=== PATIENT | male | born 1970 | race American Indian/Alaskan Native ===

== ENCOUNTER 2016-04-04 14:48 | Emergency (ER) | payer MEDICARE ==
[2016-04-04 20:24] VITALS: BP 163/95
--- NOTE | 2016-04-04 20:33 | Emergency Department Report ---
HPI - General Chief Complaint: High BP Time Seen by Provider: 04/04/16 20:07 - HPI HPI: 46 y/o male complain of hypertension .pt state that he went to [facility] to have blood pressure check and was told that bp was high .pt state that he currently had not taken any medication and was wondering what blood pressure.pt denies any pain or discomfort at present .pt denies any headache .denies any chest pain .pt state he has not taken any medication today ED Past Medical Hx - Past Medical History Previous Medical History?: Yes Hx Hypertension: Yes Hx Heart Attack/AMI: Yes Hx Congestive Heart Failure: Yes Hx Diabetes: Yes Hx Asthma: No Hx COPD: No Additional medical history: sleep apnea. MORBID OBESITY. CAD - Surgical History Past Surgical History?: Yes Additional Surgical History: adenoids removed - Social History Smoking Status: Never Smoker Substance Use Type: Prescribed - Medications Home Medications: Home Medications Medication Instructions Recorded Confirmed Last Taken Type Furosemide [Lasix] 20 mg PO QAM 06/16/13 04/05/15 06/16/13 History Lovastatin [Mevacor] 20 mg PO DAILY 06/16/13 04/05/15 06/16/13 History Ondansetron [Zofran Odt] 4 mg PO Q4-6H PRN #20 tab.rapdis 08/23/13 04/05/15 Unknown Rx Aspirin [Aspirin BABY CHEW TAB] 81 mg PO DAILY #30 tab.chew 04/06/14 04/05/15 Unknown Rx Diltiazem Cd [Cardizem CD] 120 mg PO DAILY #30 capsule 04/06/14 04/05/15 Unknown Rx Furosemide [Lasix] 20 mg PO DAILY #30 tablet 04/06/14 04/05/15 Unknown Rx HYDROcodone/APAP 5-325 [[place] 1 each PO Q6HR PRN #20 tablet 04/06/14 04/05/15 Unknown Rx 5-325 mg TAB] Levofloxacin [Levaquin] 750 mg PO QDAY #7 tablet 04/06/14 04/05/15 Unknown Rx Lisinopril/Hydrochlorothiazide 1 tab PO QAM #30 tablet 04/06/14 04/05/15 Unknown Rx [Zestoretic 20-25 mg] Omeprazole Magnesium [PriLOSEC Otc] 20 mg PO QDAY #20 tablet. 04/06/14 Unknown Rx Simvastatin [Zocor TAB] 20 mg PO QHS #30 tablet 04/06/14 04/05/15 Unknown Rx Warfarin [Coumadin] 7.5 mg PO QAM #30 tablet 04/06/14 04/05/15 Unknown Rx glipiZIDE [glipiZIDE ER] 5 mg PO BID #60 tab.er.24 04/06/14 04/05/15 Unknown Rx hydrALAZINE [Apresoline TAB] 25 mg PO TID #90 tablet 04/06/14 04/05/15 Unknown Rx metFORMIN [Glucophage] 850 mg PO BID #30 tablet 04/06/14 04/05/15 Unknown Rx Furosemide [Lasix TAB] 20 mg PO QDAY 04/05/15 03/19/16 03/05/16 History Metformin HCl [Glucophage] 1,000 mg PO BID 04/05/15 03/19/16 03/05/16 History glipiZIDE [glipiZIDE XL] 10 mg PO DAILY 04/05/15 03/19/16 03/05/16 History Diltiazem Cd [Cardizem CD] 180 mg PO BID #60 capsule 03/08/16 03/19/16 Unknown Rx Propafenone [Rythmol] 150 mg PO Q8H #90 tablet 03/08/16 03/19/16 Unknown Rx Simvastatin [Zocor TAB] 10 mg PO QHS #30 tablet 03/08/16 03/19/16 Unknown Rx Warfarin [Coumadin] 7.5 mg PO QDAY #30 tablet 03/08/16 03/19/16 Unknown Rx ED Review of Systems ROS: Stated complaint: BP HIGH Other details as noted in HPI Constitutional: denies: chills, fever Eyes: denies: eye pain, eye discharge, vision change ENT: denies: ear pain, throat pain Respiratory: denies: cough, shortness of breath, wheezing Cardiovascular: denies: chest pain, palpitations Endocrine: no symptoms reported Gastrointestinal: denies: abdominal pain, nausea, diarrhea Genitourinary: denies: urgency, dysuria Musculoskeletal: denies: back pain, joint swelling, arthralgia Skin: denies: rash, lesions Neurological: denies: headache, weakness, paresthesias Psychiatric: denies: anxiety, depression Hematological/Lymphatic: denies: easy bleeding, easy bruising Physical Exam - Physical Exam Vital Signs: Vital Signs 04/04/16 04/04/16 15:55 20:23 Temperature 98.1 F 97.6 F Pulse Rate 103 H 94 H Respiratory 22 18 Rate Blood Pressure 144/93 Blood Pressure 163/95 [Right] O2 Sat by Pulse 94 94 Oximetry Physical Exam: GENERAL: The patient is well-developed and well-nourished.pt is obese . Patient is in NAD. HENT: Normocephalic. Atraumatic. Patient has moist mucous membranes. Throat: No erythema, swelling or exudates. EYES: Extraocular motions are intact, PERRL NECK: Supple. No meningitic signs are noted. There is no adenopathy noted. CHEST/LUNGS: Clear to auscultation bilaterally. No wheezing, rales or rhonchi noted. There is no respiratory distress noted. HEART/CARDIOVASCULAR: Regular rate and rhythm. Normal S1 S2. No murmurs, rubs , clicks, or gallops. ABDOMEN: Abdomen is soft, nontender.. Bowel sounds normoactive. There is no abdominal distention. Negative rebound tenderness. : Deferred. SKIN: There is no rash. There is no edema. There is no diaphoresis. NEURO: The patient is A&Ox3. The patient has no focal neurologic deficits. MUSCULOSKELETAL: There is no tenderness or deformity. There is no limitation range of motion. PSYCH: Pt has appropriate mood and affect. ED Course Vital Signs 04/04/16 04/04/16 15:55 20:23 Temperature 98.1 F 97.6 F Pulse Rate 103 H 94 H Respiratory 22 18 Rate Blood Pressure 144/93 Blood Pressure 163/95 [Right] O2 Sat by Pulse 94 94 Oximetry ED Medical Decision Making - Medical Decision Making Hypertension pt state he current on medication but has not taken none today Critical care attestation.: If time is entered above; I have spent that time in minutes in the direct care of this critically ill patient, excluding procedure time. ED Disposition Clinical Impression: HTN (hypertension) Qualifiers: Hypertension type: essential hypertension Qualified Code(s): I10 - Essential ( primary) hypertension Disposition: DISCHARGED TO HOME OR SELFCARE Is pt being admited?: No Does the pt Need Aspirin: No Condition: Stable Instructions: Hypertension (ED) Time of Disposition: 20:41
== END 2016-04-04 20:42 | disposition home or self-care (01) ==
LOC: ED 14:48
DX: I10 Essential (primary) hypertension (principal); I25.2 Old myocardial infarction; E11.9 Type 2 diabetes mellitus without complications; I50.9 Heart failure, unspecified; E66.01 Morbid (severe) obesity due to excess calories; I25.10 Atherosclerotic heart disease of native coronary artery without angina pectoris; Z79.82 Long term (current) use of aspirin; Z79.01 Long term (current) use of anticoagulants
CPT/HCPCS: 99282

== ENCOUNTER 2016-08-10 06:22 | Day surgery (SDC) | payer MEDICARE ==
[2016-08-10] MEDS ORDERED: ECOTRIN PO ONE (07:06)
[2016-08-10] MEDS ORDERED: NACL 0.9% 500 ML 500 ML IV SCH (08:00)
[2016-08-10] MEDS ORDERED: VERSED ONE (09:30)
[2016-08-10] MEDS ORDERED: NITROGLYCERIN SYRINGE 3 ML ONE (09:30)
[2016-08-10] MEDS ORDERED: HEPARIN 10,000 UNITS/10 ML ONE (09:30)
[2016-08-10] MEDS ORDERED: HEPARIN/NS 5000 UNIT/500ML(CATH LAB) 1,000 ML IR ONE (09:30)
[2016-08-10] MEDS ORDERED: XYLOCAINE 2% INFILTRATI ONE (09:30)
[2016-08-10] MEDS ORDERED: SUBLIMAZE ONE (09:30)
[2016-08-10] MEDS ORDERED: CALAN ONE (09:30)
--- NOTE | 2016-08-10 10:54 | Short Stay Summary ---
Short Stay Documentation Date of service: 08/10/16 - History H&P: obtained from office - Allergies and Medications Current Medications: Allergies No Known Allergies Allergy (Verified 04/05/15 14:07) Home Medications Medication Instructions Recorded Confirmed Last Taken Type Furosemide [Lasix TAB] 20 mg PO QDAY 04/05/15 08/10/16 08/09/16 History Metformin HCl [Glucophage] 1,000 mg PO BID 04/05/15 08/10/16 08/09/16 History glipiZIDE [glipiZIDE XL] 10 mg PO DAILY 04/05/15 08/10/16 08/09/16 History Diltiazem Cd [Cardizem CD] 180 mg PO BID #60 capsule 03/08/16 08/10/16 08/10/16 Rx Lisinopril [Lisinopril] 20 mg PO DAILY 08/10/16 08/10/16 08/10/16 History Simvastatin [Zocor TAB] 20 mg PO QHS 08/10/16 08/10/16 08/09/16 History Sotalol HCl [Sotalol] 120 mg PO BID 08/10/16 08/10/16 08/10/16 History Warfarin [Coumadin] 10 mg PO QDAY 08/10/16 08/10/16 08/06/16 History hydrALAZINE [Apresoline TAB] 100 mg PO BID 08/10/16 08/10/16 08/09/16 History Active Medications Sodium Chloride (Nacl 0.9% 500 Ml) 500 mls @ 50 mls/hr IV DIRECT RODNEY Stop: 08/10/16 17:59 Last Admin: 08/10/16 07:39 Dose: 50 mls/hr - Disposition Condition at discharge: Good Disposition: DISCHARGED TO HOME OR SELFCARE - Discharge Diagnoses (1) Atrial fibrillation Status: Chronic Qualifiers: Atrial fibrillation type: paroxysmal Qualified Code(s): I48.0 - Paroxysmal atrial fibrillation (2) Hyperglycemia Status: Acute (3) HTN (hypertension) Status: Chronic (4) Hyperlipidemia Status: Chronic Qualifiers: Hyperlipidemia type: H (5) Morbid obesity Status: Chronic Qualifiers: Obesity type: due to excess calories Qualified Code(s): E66.01 - Morbid ( severe) obesity due to excess calories Short Stay Discharge Plan Activity: advance as tolerated Wound: keep clean and dry Follow up with: ASAEL DOMINGUEZ MD [Staff Physician] - 7 Days
[2016-08-10 11:33] VITALS: BP 124/71
--- NOTE | 2016-08-10 13:32 | Cardiac Catherization Report ---
CLINICAL INFORMATION: This is a 46-year-old gentleman with morbid obesity, has hypertension, paroxysmal atrial fibrillation, who has been having recurrent palpitations, shortness of breath. He is going for bariatric surgery with indeterminate cardiac PET study done last year. In view of symptomatologies, the patient is here for left heart cath. Left heart cath performed via the right radial artery, sterile technique, local anesthesia, 6-Jamaican radial sheath inserted. Left system engaged with a JL3.5 catheter. FINDINGS: Left main is large and patent, bifurcates to large LAD that is patent with moderate tortuosity with mild luminal irregularities. Diagonal 1 is a medium caliber vessel is patent with mild luminal irregularities. Circumflex and AV groove is a medium caliber vessel patent, goes into [id number] caliber OM1 and OM2 that are patent. RCA engaged with JR4 catheter is a large dominant vessel, patent with moderate tortuosity. PDA and PLV are large caliber vessels that are patent and long covers the whole lateral wall. LV gram done in ROMANIAN and IBANEZ view shows EF 55 to 60%. LVEDP at 30 to 35 mmHg, LV is 141. Aortic is 134/86. No significant gradient across the aortic valve on pullback. The 5-Jamaican catheters were all taken over a guidewire, 6-Jamaican radial sheath was discontinued. Radial dressing applied. No hematoma. No bleeding. SUMMARY: Normal coronaries, mild luminal irregularities in the LAD and diagonal, moderate tortuosity of vessels. RCA large and patent dominant. Normal LV function. Normal left main. Mildly elevated left end-diastolic pressure. Continue risk factor modification. Reviewed the films with the patient in detail. JOB# [id number] ANEESH/NTS
== END 2016-08-10 12:30 | disposition home or self-care (01) ==
LOC: OPU 06:22
PROVIDERS: ATTEND Internal Medicine
DX: I48.0 Paroxysmal atrial fibrillation (principal); I11.0 Hypertensive heart disease with heart failure; I50.30 Unspecified diastolic (congestive) heart failure; E78.2 Mixed hyperlipidemia; E66.01 Morbid (severe) obesity due to excess calories; Z68.43 Body mass index [BMI] 50.0-59.9, adult; Z79.899 Other long term (current) drug therapy; Z79.84 Long term (current) use of oral hypoglycemic drugs; Z82.49 Family history of ischemic heart disease and other diseases of the circulatory system; Z83.3 Family history of diabetes mellitus
CPT/HCPCS: 82962; 93005; 93010; 93458; C1894; J1644; J2250; J3010; J7040; Q9967

== ENCOUNTER 2017-06-18 20:30 | Emergency (ER) | payer MEDICAID, MEDICARE ==
[2017-06-18 20:57] LABS: Basophils # (Auto) 0.1 K/mm3 (0.0-0.1); Basophils % (Auto) 0.8 % (0.0-1.8); Eosinophils # (Auto) 0.1 K/mm3 (0.0-0.4); Eosinophils % (Auto) 0.9 % (0.0-4.3); Hematocrit 47.2 % (35.5-45.6); Hemoglobin 14.8 gm/dl (11.8-15.2); Lymphocytes # (Auto) 1.6 K/mm3 (1.2-5.4); Lymphocytes % (Auto) 16.6 % (13.4-35.0); Mean Corpuscular HGB Conc 31 % (32-34); Mean Corpuscular Volume 81 fl (84-94); Monocytes # (Auto) 0.6 K/mm3 (0.0-0.8); Monocytes % (Auto) 6.6 % (0.0-7.3); Platelet Count 209 K/mm3 (140-440); Red Blood Count 5.83 M/mm3 (3.65-5.03); Red Cell Distribution Width 16.9 % (13.2-15.2)
[2017-06-18 20:58] LABS: Mean Corpuscular Hemoglobin 25 pg (28-32)
[2017-06-18 21:08] LABS: INR 2.47 (0.87-1.13)
[2017-06-18 21:20] LABS: BUN/Creatinine Ratio 13; Blood Urea Nitrogen 13 mg/dL (9-20); Calcium 8.7 mg/dL (8.4-10.2); Hemolysis Index 45
--- NOTE | 2017-06-18 22:02 | Emergency Department Report ---
ED Shortness of Breath HPI - General Chief Complaint: Dyspnea/Respdistress Stated Complaint: SOB Time Seen by Provider: 06/18/17 21:17 Source: patient Mode of arrival: Ambulatory Limitations: No Limitations - History of Present Illness Initial Comments: 47-year-old male with history of A. fib history of CHF and morbid obesity with sleep apnea states he had a spell of shortness of breath earlier today he just wanted to get checked he says he better now chest pain no fever no cough no headache no stiff neck states he's been compliant with meds -: Gradual, unknown Severity: mild Associated Symptoms: denies other symptoms - Related Data Home Medications Medication Instructions Recorded Confirmed Last Taken Furosemide [Lasix TAB] 40 mg PO QDAY 04/05/15 06/18/17 08/09/16 Metformin HCl [Glucophage] 1,000 mg PO BID 04/05/15 06/18/17 08/09/16 glipiZIDE [glipiZIDE XL] 10 mg PO BID 04/05/15 06/18/17 08/09/16 Lisinopril 20 mg PO DAILY 08/10/16 06/18/17 08/10/16 Sotalol HCl [Sotalol] 120 mg PO TID 08/10/16 06/18/17 08/10/16 Warfarin [Coumadin] 10 mg PO QDAY 08/10/16 06/18/17 08/06/16 hydrALAZINE [Apresoline TAB] 100 mg PO BID 08/10/16 06/18/17 08/09/16 AtorvaSTATin [Lipitor] 20 mg PO QHS 06/18/17 06/18/17 Unknown Diltiazem Cd [Cardizem CD] 180 mg PO QDAY 06/18/17 06/18/17 Unknown Allergies Allergy/AdvReac Type Severity Reaction Status Date / Time No Known Allergies Allergy Verified 06/18/17 20:42 ED Review of Systems ROS: Stated complaint: SOB Other details as noted in HPI Comment: All other systems reviewed and negative Constitutional: denies: diaphoresis, fever, malaise, weakness ENT: denies: ear pain, throat pain Respiratory: denies: cough, orthopnea, shortness of breath, SOB with exertion, SOB at rest, stridor, wheezing Cardiovascular: orthopnea, edema. denies: chest pain, palpitations, dyspnea on exertion, syncope, paroxysmal nocturnal dyspnea Gastrointestinal: denies: abdominal pain, nausea, vomiting, diarrhea, constipation, hematemesis, melena, hematochezia Musculoskeletal: denies: joint swelling, arthralgia, myalgia Neurological: denies: headache, weakness, numbness, paresthesias, confusion, abnormal gait, vertigo ED Past Medical Hx - Past Medical History Hx Hypertension: Yes Hx Heart Attack/AMI: Yes Hx Congestive Heart Failure: Yes Hx Diabetes: Yes Hx Asthma: No Hx COPD: No Additional medical history: sleep apnea. MORBID OBESITY. CAD - Surgical History Additional Surgical History: adenoids removed - Social History Smoking Status: Never Smoker Substance Use Type: None - Medications Home Medications: Home Medications Medication Instructions Recorded Confirmed Last Taken Type Furosemide [Lasix TAB] 40 mg PO QDAY 04/05/15 06/18/17 08/09/16 History Metformin HCl [Glucophage] 1,000 mg PO BID 04/05/15 06/18/17 08/09/16 History glipiZIDE [glipiZIDE XL] 10 mg PO BID 04/05/15 06/18/17 08/09/16 History Lisinopril 20 mg PO DAILY 08/10/16 06/18/17 08/10/16 History Sotalol HCl [Sotalol] 120 mg PO TID 08/10/16 06/18/17 08/10/16 History Warfarin [Coumadin] 10 mg PO QDAY 08/10/16 06/18/17 08/06/16 History hydrALAZINE [Apresoline TAB] 100 mg PO BID 08/10/16 06/18/17 08/09/16 History AtorvaSTATin [Lipitor] 20 mg PO QHS 06/18/17 06/18/17 Unknown History Diltiazem Cd [Cardizem CD] 180 mg PO QDAY 06/18/17 06/18/17 Unknown History ED Physical Exam - General Limitations: No Limitations General appearance: alert, in no apparent distress - Head Head exam: Present: atraumatic, normocephalic - Eye Eye exam: Present: normal appearance, PERRL, EOMI - ENT ENT exam: Present: normal exam, normal orophraynx - Neck Neck exam: Present: normal inspection. Absent: tenderness, meningismus - Respiratory Respiratory exam: Present: normal lung sounds bilaterally. Absent: respiratory distress, wheezes, rales, rhonchi, stridor, chest wall tenderness - Cardiovascular Cardiovascular Exam: Present: regular rate, normal rhythm - GI/Abdominal GI/Abdominal exam: Present: soft. Absent: tenderness, guarding, rebound, mass, bruit, pulsatile mass - Extremities Exam Extremities exam: Present: normal capillary refill, other (no Homans). Absent: joint swelling, calf tenderness - Neurological Exam Neurological exam: Present: alert, oriented X3, CN II-XII intact. Absent: motor sensory deficit ED Course Vital Signs 06/18/17 06/18/17 06/18/17 20:42 21:23 21:30 Temperature 98.2 F Pulse Rate 109 H 92 H 87 Respiratory 18 16 18 Rate Blood Pressure 193/107 129/63 O2 Sat by Pulse 95 90 89 Oximetry 06/18/17 06/18/17 06/18/17 21:45 22:00 22:16 Temperature Pulse Rate 91 H 93 H 95 H Respiratory 21 20 19 Rate Blood Pressure 112/75 125/76 124/79 O2 Sat by Pulse 91 91 92 Oximetry 06/18/17 06/18/17 06/18/17 22:30 22:46 23:00 Temperature Pulse Rate 94 H 88 86 Respiratory 19 20 18 Rate Blood Pressure 125/87 135/86 134/73 O2 Sat by Pulse 95 92 94 Oximetry 06/18/17 06/18/17 06/18/17 23:16 23:30 23:46 Temperature Pulse Rate 98 H 93 H 82 Respiratory 19 17 17 Rate Blood Pressure 133/70 114/71 141/85 O2 Sat by Pulse 95 94 Oximetry ED Medical Decision Making - Lab Data Result diagrams: 06/18/17 20:48 06/18/17 20:48 - EKG Data -: EKG Interpreted by Vt EKG shows normal: sinus rhythm - EKG Data When compared to previous EKG there are: no significant change Interpretation: no acute changes - Radiology Data Radiology results: image reviewed - Medical Decision Making EKG unchanged, troponin negative, BNP is roughly baseline. Chest x-ray shows no pulmonary infiltrates. Symptoms are not suggestive of PE or DVT at this time. No evidence of acute emergent cardiopulmonary process for further testing or admission is observed at this time. Patient's reference to for outpatient follow-up he says he is feeling at his baseline. Earlier in the day he was worried that he was getting more short of breath. He will continue his current medicine and return if worse Critical care attestation.: If time is entered above; I have spent that time in minutes in the direct care of this critically ill patient, excluding procedure time. ED Disposition Clinical Impression: CHF (congestive heart failure) Disposition: DC-01 TO HOME OR SELFCARE Is pt being admited?: No Condition: Stable Additional Instructions: See her doctor or return if worse or call 911 Referrals: ABDELRAHMAN YUN MD [Primary Care Provider] - 3-5 Days Time of Disposition: 00:13
--- NOTE | 2017-06-18 22:21 | XRay Report ---
FINAL REPORT EXAM: XR CHEST ROUTINE 2V HISTORY: SOB TECHNIQUE: AP portable view of the chest PRIORS: None. FINDINGS: Lines, tubes, and devices: N/A Lungs and pleura: Trachea is normal in position. Perihilar vascular congestion is noted bilaterally. Cardiomediastinal silhouette: cardiac size is enlarged. Other: Bony structures demonstrate mild kyphosis at the thoracolumbar junction. Osteophytic spurring is present anteriorly throughout the thoracic spine IMPRESSION: Perihilar vascular congestion suggesting mild CHF or volume overload. Cardiomegaly
[2017-06-18 23:59] VITALS: BP 141/85
[2017-06-19] MEDS ORDERED: LASIX IV ONE (00:38)
[2017-06-19] MEDS ORDERED: LASIX PO ONE (00:42)
== END 2017-06-19 00:50 | disposition home or self-care (01) ==
LOC: ED 20:30
DX: I11.0 Hypertensive heart disease with heart failure (principal); I50.9 Heart failure, unspecified; I25.2 Old myocardial infarction; I25.10 Atherosclerotic heart disease of native coronary artery without angina pectoris; E11.9 Type 2 diabetes mellitus without complications; E66.01 Morbid (severe) obesity due to excess calories; Z68.44 Body mass index [BMI] 60.0-69.9, adult; Z90.89 Acquired absence of other organs
CPT/HCPCS: 36415; 71046; 80048; 83880; 84484; 85025; 85610; 85730; 93005; 93010

== ENCOUNTER 2021-09-21 14:28 | Inpatient (IN) | payer MEDICARE ==
[2021-09-21 15:30] LABS: Mean Corpuscular HGB Conc 31 % (32-34); Mean Corpuscular Volume 78 fl (84-94); Platelet Count 262 K/mm3 (140-440); Red Blood Count 5.32 M/mm3 (3.65-5.03); Red Cell Distribution Width 17.7 % (13.2-15.2)
[2021-09-21 15:52] LABS: Alanine Aminotransferase 9 units/L (7-56); Albumin 4.5 g/dL (3.9-5); BUN/Creatinine Ratio 24; Blood Urea Nitrogen 26 mg/dL (9-20); Calcium 9.8 mg/dL (8.4-10.2); Hemolysis Index 0
[2021-09-21 15:54] LABS: Hematocrit 41.4 % (35.5-45.6); Hemoglobin 12.8 gm/dl (11.8-15.2)
[2021-09-21 19:09] LABS: Anisocytosis Few; Basophils % (Manual) 0 % (0.0-1.8); Eosinophils % (Manual) 0 % (0.0-4.3); Hypochromasia 1+; Platelet Estimate Consistent w Auto; Total Cells Counted 100
[2021-09-21] MEDS ORDERED: ONDANSETRON 4 MG ODT TAB PO ONE (20:53)
[2021-09-22] MEDS ORDERED: dilTIAZem 25 MG/5 ML INJ IV ONE ×2 (03:38→06:23)
[2021-09-22] MEDS ORDERED: ONDANSETRON 4 MG/2 ML INJ IV ONE (03:38)
[2021-09-22] MEDS ORDERED: SODIUM CHLORIDE 0.9% 1000 ML 1,000 ML IV ONE ×2 (03:39→05:24)
--- NOTE | 2021-09-22 03:44 | Emergency Department Report ---
ED N/V/D HPI - General Chief complaint: Nausea/Vomiting/Diarrhea Stated complaint: WEAKNESS Time Seen by Provider: 09/22/21 03:05 Source: patient, EMS Mode of arrival: Stretcher Limitations: No Limitations - History of Present Illness Initial comments: 51-year-old morbidly obese male with history of atrial fibrillation who presents with nausea and vomiting associated with epigastric discomfort that started yesterday morning progressively getting worse. Patient denies any fever or chills. Patient could not get comfortable in the bed. No other modifying or associated factors reported. - Related Data Home Medications Medication Instructions Recorded Confirmed Last Taken Furosemide [Lasix TAB] 40 mg PO QDAY 04/05/15 06/18/17 08/09/16 Metformin HCl [Glucophage] 1,000 mg PO BID 04/05/15 06/18/17 08/09/16 glipiZIDE [glipiZIDE XL] 10 mg PO BID 04/05/15 06/18/17 08/09/16 Lisinopril 20 mg PO DAILY 08/10/16 06/18/17 08/10/16 Sotalol HCl [Sotalol] 120 mg PO TID 08/10/16 06/18/17 08/10/16 Warfarin [Coumadin] 10 mg PO QDAY 08/10/16 06/18/17 08/06/16 hydrALAZINE [Apresoline TAB] 100 mg PO BID 08/10/16 06/18/17 08/09/16 AtorvaSTATin [Lipitor] 20 mg PO QHS 06/18/17 06/18/17 Unknown dilTIAZem CD [Cardizem CD] 180 mg PO QDAY 06/18/17 06/18/17 Unknown Previous Rx's Medication Instructions Recorded Last Taken Type Omeprazole Magnesium [PriLOSEC Otc] 20 mg PO BID 30 Days #60 tab NS 09/22/21 Unknown Rx Ondansetron [Zofran ODT TAB] 8 mg PO Q8HR 5 Days #15 tab.rapdis 09/22/21 Unknown Rx NS Allergies Allergy/AdvReac Type Severity Reaction Status Date / Time No Known Allergies Allergy Verified 06/18/17 20:42 ED Review of Systems ROS: Stated complaint: WEAKNESS Other details as noted in HPI Comment: All other systems reviewed and negative Gastrointestinal: abdominal pain, nausea, vomiting ED Past Medical Hx - Past Medical History Hx Hypertension: Yes Hx Heart Attack/AMI: Yes Hx Congestive Heart Failure: Yes Hx Diabetes: Yes Hx Asthma: No Hx COPD: No Additional medical history: sleep apnea. MORBID OBESITY. CAD - Surgical History Additional Surgical History: adenoids removed - Social History Smoking Status: Never Smoker Substance Use Type: None - Medications Home Medications: Home Medications Medication Instructions Recorded Confirmed Last Taken Type Furosemide [Lasix TAB] 40 mg PO QDAY 04/05/15 06/18/17 08/09/16 History Metformin HCl [Glucophage] 1,000 mg PO BID 04/05/15 06/18/17 08/09/16 History glipiZIDE [glipiZIDE XL] 10 mg PO BID 04/05/15 06/18/17 08/09/16 History Lisinopril 20 mg PO DAILY 08/10/16 06/18/17 08/10/16 History Sotalol HCl [Sotalol] 120 mg PO TID 08/10/16 06/18/17 08/10/16 History Warfarin [Coumadin] 10 mg PO QDAY 08/10/16 06/18/17 08/06/16 History hydrALAZINE [Apresoline TAB] 100 mg PO BID 08/10/16 06/18/17 08/09/16 History AtorvaSTATin [Lipitor] 20 mg PO QHS 06/18/17 06/18/17 Unknown History dilTIAZem CD [Cardizem CD] 180 mg PO QDAY 06/18/17 06/18/17 Unknown History Omeprazole Magnesium [PriLOSEC Otc] 20 mg PO BID 30 Days #60 tab NS 09/22/21 Unknown Rx Ondansetron [Zofran ODT TAB] 8 mg PO Q8HR 5 Days #15 tab.rapdis 09/22/21 Unknown Rx NS ED Physical Exam - General Limitations: No Limitations General appearance: alert, in no apparent distress, obese - Head Head exam: Present: normal inspection - Eye Eye exam: Present: normal appearance - ENT ENT exam: Present: normal exam, normal orophraynx, mucous membranes moist - Neck Neck exam: Present: normal inspection, full ROM. Absent: tenderness - Respiratory Respiratory exam: Present: normal lung sounds bilaterally. Absent: respiratory distress, accessory muscle use - Cardiovascular Cardiovascular Exam: Present: regular rate, normal rhythm, normal heart sounds - GI/Abdominal GI/Abdominal exam: Present: soft, tenderness (Epigastric), other (Obese). Absen t: distended - Extremities Exam Extremities exam: Present: normal inspection, normal capillary refill. Absent: pedal edema - Back Exam Back exam: Absent: tenderness - Neurological Exam Neurological exam: Present: alert, oriented X3 - Psychiatric Psychiatric exam: Present: normal affect, normal mood - Skin Skin exam: Present: warm, intact ED Course Vital Signs 09/22/21 09/22/21 09/22/21 01:00 01:15 01:31 Pulse Rate 130 H 133 H Respiratory 14 14 19 Rate Blood Pressure 166/105 157/98 O2 Sat by Pulse 95 94 Oximetry 09/22/21 09/22/21 09/22/21 01:45 02:01 02:45 Pulse Rate 121 H 122 H 135 H Respiratory 17 19 17 Rate Blood Pressure 160/107 160/98 157/116 O2 Sat by Pulse Oximetry ED Medical Decision Making - Lab Data Result diagrams: 09/21/21 14:52 09/21/21 14:52 - EKG Data -: EKG Interpreted by Me - EKG Data 09/22/21 03:45 Noted with atrial fibrillation with RVR at 121 bpm with left axis deviation and this abnormal ECG. - Medical Decision Making Here with abdominal pain--differential could be but not limited to appendicitis, diverticulitis, cholecystitis, cholelithiasis, nephrolithiasis, gastritis, pancreatitis, duodenitis, colitis, irritable bowel syndrome, cystitis, so in order to rule this out we will go ahead and order routine acute abdomen that include CBC, CMP, urinalysis, and CT imaging of the abdomen/pelvic. Given Zofran 8 mg IV x1 and fentanyl + ivf ns 1L bolus x 1-- for symptomatic relief-- Also giving Cardizem 20 mg IV x1 for the atrial fibrillation Labs reviewed to be with in normal limit-- and CT abd/pel with no acute findings -- pt reassured and d/c home on zofran and prilosec with close follow up with hi s PCP-- Critical care attestation.: If time is entered above; I have spent that time in minutes in the direct care of this critically ill patient, excluding procedure time. ED Disposition Clinical Impression: Epigastric pain Nausea and vomiting Qualifiers: Vomiting type: unspecified Qualified Code(s): R11.2 - Nausea with vomiting, unspecified Atrial fibrillation Qualifiers: Atrial fibrillation type: unspecified chronic Qualified Code(s): I48.20 - Chronic atrial fibrillation, unspecified Disposition: 01 HOME / SELF CARE / HOMELESS Is pt being admited?: No Does the pt Need Aspirin: No Condition: Stable Instructions: Nausea and Vomiting, Adult, [id number], Atrial Fibrillation, [id number], Abdominal Pain, Adult Additional Instructions: Take your new nausea medication and antiacid as prescribed to continue to help your symptoms : Follow-up with your primary doctor in the next 2 to 3 days for progress It would not be unreasonable to lose some weight to help your overall health Please do not hesitate to call or return to emergency room if your symptoms worsen Prescriptions: Omeprazole Magnesium [PriLOSEC Otc] 20 mg PO BID 30 Days #60 tab NS Ondansetron [Zofran ODT TAB] 8 mg PO Q8HR 5 Days #15 tab.inge FLORES Time of Disposition: 05:12
[2021-09-22 04:20] LABS: Bilirubin,Urine NEG (Negative); Blood,Urine MOD (Negative); Color,Urine Yellow (Yellow); Urobilinogen,Urine < 2.0 mg/dL (<2.0)
[2021-09-22 04:23] LABS: Protein,Urine >500 mg/dL (Negative)
--- NOTE | 2021-09-22 04:53 | Cat Scan Report ---
CT ABDOMEN AND PELVIS WITH CONTRAST INDICATION / CLINICAL INFORMATION: Abdominal pain with N/V/D. TECHNIQUE: Axial CT images were obtained through the abdomen and pelvis after 100 cc Omnipaque [address] scans at this location are performed using CT dose reduction for ALARA by means of automated exposure control. COMPARISON: None available. FINDINGS: LOWER CHEST: Mild cardiomegaly. No acute findings within the lower chest. LIVER: No focal lesion. No acute findings. GALLBLADDER / BILE DUCTS: Gallbladder stones and/or sludge without inflammatory changes. Biliary margarito ts grossly unremarkable. SPLEEN: No significant abnormality. PANCREAS: No significant abnormality. ADRENALS: No significant abnormality. KIDNEYS/URETERS: No stones or hydronephrosis. No solid renal lesion. STOMACH / DUODENUM / SMALL BOWEL: The stomach, duodenum, and small bowel demonstrate no significant a bnormality. No specific abnormality of the mesentery demonstrated. COLON: No significant abnormality. APPENDIX: The appendix is not clearly identified and may be absent. PERITONEUM: No free air or free fluid are present within the abdomen or pelvis. LYMPH NODES: No significant adenopathy. AORTA / ARTERIES: No significant abnormality. IVC / VEINS: No significant abnormality. URINARY BLADDER: No significant abnormality. REPRODUCTIVE ORGANS: No significant abnormality. ADDITIONAL ABDOMINAL/PELVIC FINDINGS: None. SKELETAL SYSTEM: No significant abnormality. IMPRESSION: 1. No acute findings within the abdomen or pelvis. Signer Name: Hunter Ortega II, MD Signed: 09/22/2021 4:49 AM Workstation Name: [id number]
--- NOTE | 2021-09-22 06:57 | Emergency Department Report ---
Blank Doc - Documentation Documentation: I was signed out this patient by the overnight physician, Dr. Victoria. The janey ent had an extensive work-up including labs, EKG, and CT of the abdomen pelvis with IV contrast secondary to nausea and vomiting. The patient has a history of chronic atrial fibrillation and Dr Victoria had asked for me to evaluate after the patient was given a liter of IV fluid and a dose of labetalol for his tachycardia. About 35 minutes after the labetalol was given the patient still had a heart rate varying between 110-135. I therefore gave a second dose of Cardizem, 20 mg. Patient's heart rate now varies between 9210 bpm. He was able to pass an oral challenge. 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
[2021-09-22] MEDS ORDERED: METOCLOPRAMIDE 10 MG/2 ML INJ IV ONE (07:19)
[2021-09-22] MEDS ORDERED: AMIODARONE 900 MG in DEXTROSE 5% IN WATER 482 ML IV SCH ×2 (08:00)
[2021-09-22] MEDS ORDERED: ACETAMINOPHEN 325 MG TAB PO PRN (09:00)
[2021-09-22] MEDS ORDERED: MORPHINE 4 MG/1 ML INJ IV PRN (09:00)
--- NOTE | 2021-09-22 09:44 | Consultation ---
History of Present Illness Consult date: 09/22/21 Requesting physician: CORA GARCIA History of present illness: Patient is a 51-year-old male with a PMHx of morbid obesity, sleep apnea, paroxsimal atrial fibrillation, Chronic diastolic dysfunction, chronic renal insufficiency, HTN, DM, who presents today with complaint of nausea and vomiting since yesterday morning. Patient reports being in normal state of health until yesterday morning when he woke up with the symptoms. Patient also complains of abdominal pain worsened with vomiting. Patient also reports that he feels that he has a virus and reports that he also has a cough. In the ED patient was found to be in A. fib with RVR rate and's into the 130s and 140. Patient denies any complaints of chest pain, diaphoresis, squeezing or crushing heart pain. Patient is followed by Dr. Mike of our practice. Cardiology is consulted for A. fib with RVR Past History Past Medical History: atrial fib, COPD, diabetes, heart failure, hypertension, hyperlipidemia Social history: denies: smoking, alcohol abuse Family history: CAD, diabetes, hypertension Medications and Allergies Allergies Allergy/AdvReac Type Severity Reaction Status Date / Time No Known Allergies Allergy Verified 06/18/17 20:42 Home Medications Medication Instructions Recorded Confirmed Last Taken Type Furosemide [Lasix TAB] 40 mg PO QDAY 04/05/15 06/18/17 08/09/16 History Metformin HCl [Glucophage] 1,000 mg PO BID 04/05/15 06/18/17 08/09/16 History glipiZIDE [glipiZIDE XL] 10 mg PO BID 04/05/15 06/18/17 08/09/16 History Lisinopril 20 mg PO DAILY 08/10/16 06/18/17 08/10/16 History Sotalol HCl [Sotalol] 120 mg PO TID 08/10/16 06/18/17 08/10/16 History Warfarin [Coumadin] 10 mg PO QDAY 08/10/16 06/18/17 08/06/16 History hydrALAZINE [Apresoline TAB] 100 mg PO BID 08/10/16 06/18/17 08/09/16 History AtorvaSTATin [Lipitor] 20 mg PO QHS 06/18/17 06/18/17 Unknown History dilTIAZem CD [Cardizem CD] 180 mg PO QDAY 06/18/17 06/18/17 Unknown History Omeprazole Magnesium [PriLOSEC Otc] 20 mg PO BID 30 Days #60 tab NS 09/22/21 Un known Rx Ondansetron [Zofran ODT TAB] 8 mg PO Q8HR 5 Days #15 tab.rapdis 09/22/21 Unknown Rx NS Active Meds: Active Medications Acetaminophen (Acetaminophen 325 Mg Tab) 650 mg PO Q4H PRN PRN Reason: Pain MILD(1-3)/Fever >100.5/LOWRY Atorvastatin Calcium (Atorvastatin 20 Mg Tab) 20 mg PO QHS RODNEY Digoxin (Digoxin 0.5 Mg/2 Ml Inj) 0.25 mg IV Q6H RODNEY Stop: 09/23/21 04:01 Diltiazem HCl (Diltiazem 90 Mg Tab) 90 mg PO Q6HR RODNEY Furosemide (Furosemide 40 Mg Tab) 40 mg PO BID RODNEY Hydralazine HCl (Hydralazine 100 Mg Tab) 100 mg PO BID RODNEY Lisinopril (Lisinopril 20 Mg Tab) 40 mg PO DAILY RODNEY Morphine Sulfate (Morphine 4 Mg/1 Ml Inj) 4 mg IV Q4H PRN PRN Reason: Pain , Severe (7-10) Ondansetron HCl (Ondansetron 4 Mg/2 Ml Inj) 4 mg IV Q8H PRN PRN Reason: Nausea And Vomiting Oxycodone/Acetaminophen (Oxycodone /Acetaminophen 5-325mg Tab) 1 tab PO Q6H PRN PRN Reason: Pain, Moderate (4-6) Sodium Chloride (Sodium Chloride 0.9% 10 Ml Flush Syringe) 10 ml IV BID RODNEY Sodium Chloride (Sodium Chloride 0.9% 10 Ml Flush Syringe) 10 ml IV PRN PRN PRN Reason: LINE FLUSH Review of Systems Constitutional: no weight loss, no weight gain Ears, nose, mouth and throat: no sinus pressure, no sinus pain Cardiovascular: shortness of breath, no chest pain Respiratory: cough, shortness of breath Gastrointestinal: abdominal pain, nausea, vomiting Musculoskeletal: no neck stiffness, no neck pain Integumentary: no rash, no pruritis, no redness Neurological: no head injury, no transient paralysis Psychiatric: no anxiety, no memory loss Endocrine: no cold intolerance, no heat intolerance Hematologic/Lymphatic: no easy bruising, no easy bleeding Physical Examination Vital Signs Resp Pulse Ox 14 95 09/22/21 01:00 09/22/21 01:00 General appearance: no acute distress HEENT: Positive: PERRL, Normocephaly Cardiac: Positive: irregularly irregular, Tachycardia Lungs: Positive: Decreased Breath Sounds Neuro: Positive: Grossly Intact Abdomen: Positive: Soft Skin: Negative: Rash, Suspicious Lesions, Ulceration Extremities: Present: upper extr. pulses, edema Results 09/21/21 14:52 09/21/21 14:52 Cardiac Enzymes 09/21/21 Range/Units 14:52 AST 10 (5-40) units/L CBC 09/21/21 Range/Units 14:52 WBC 11.0 (4.5-11.0) K/mm3 RBC 5.32 H (3.65-5.03) M/mm3 Hgb 12.8 (11.8-15.2) gm/dl Hct 41.4 (35.5-45.6) % Plt Count 262 (140-440) K/mm3 Comprehensive Metabolic Panel 09/21/21 Range/Units 14:52 Sodium 139 (137-145) mmol/L Potassium 3.9 (3.6-5.0) mmol/L Chloride 97.4 L (98-107) mmol/L Carbon Dioxide 26 (22-30) mmol/L BUN 26 H (9-20) mg/dL Creatinine 1.1 (0.8-1.3) mg/dL Glucose 168 H (75-100) mg/dL Calcium 9.8 (8.4-10.2) mg/dL AST 10 (5-40) units/L ALT 9 (7-56) units/L Alkaline Phosphatase 55 (35-129) units/L Total Protein 8.7 H (6.3-8.2) g/dL Albumin 4.5 (3.9-5) g/dL - Imaging and Cardiology Echo: report reviewed EKG interpretations - Telemetry EKG Rhythm: Atrial Fibrillation - EKG Supraventricular dysrhythmia: atrial fibrillation Assessment and Plan Patient is a 51-year-old male with a PMHx of morbid obesity, sleep apnea, paroxsimal atrial fibrillation, Chronic diastolic dysfunction, chronic renal insufficiency, HTN, DM, who presents today with complaint of nausea and vomiting since yesterday morning A. fib with RVR Nausea/vomiting ABD pain Chronic diastolic dysfunction Chronic renal insufficiency Hypertension Diabetes Sleep apnea Morbid obesity Echo 05/18/2021- Contrast was utilized. There is normal LV systolic function. The estimated LV ejection fraction is normal at 55-60%. There is moderate concentric LV hypertrophy. Normal left atrial pressure and diastolic function. There is normal right ventricular size, wall dimension, and systolic function. The LA volume is mildly increased. There is no aortic valve stenosis or regurgitation. There is mild aortic valve sclerosis without significant stenosis. There is no mitral regurgitation. There is mild tricuspid regurgitation. The estimated RV systolic pressure is 39.29 mmHg. There is trivial pulmonic regurgitation. The ascending aorta is mildly dilated. Ascending Aortic Diameter: 3.94 cm. No left ventricular thrombus noted with LV contrast images. Cardiac cath 08/10/2016-normal coronaries, mild luminal irregularities in the LAD and diagonal, moderate tortuosity of vessels. RCA is large and patent and dominant. Normal LV function. Normal left main. Outpatient medications: Furosemide 40 mg p.o. twice daily, atorvastatin 20 mg p.o. nightly, hydralazine 100 mg p.o. twice daily, lisinopril 40 mg p.o. daily, sotalol 80 mg p.o. twice daily, warfarin, metolazone 2.5 mg p.o. every 72 hours Plan: EKG shows A. fib with RVR rate 121 with PVCs. No acute hemic changes. Troponin negative x1. Patient denies any complaint of chest pain Resume outpatient Lasix, atorvastatin, hydralazine, lisinopril Initiate diltiazem 90 mg p.o. every 6 hours and digoxin 0.25mg IV every 6 hours x4 doses for rate control Anticoagulation with warfarin pharmacy to dose Patient complaining of cough and stating he feels like he has virus. COVID PCR pending Patient seen in conjunction with Dr. Mike who agrees with this plan of care - Patient Problems (1) Chronic diastolic (congestive) heart failure Current Visit: Yes Status: Acute (2) Atrial fibrillation with RVR Current Visit: Yes Status: Acute (3) Epigastric pain Current Visit: Yes Status: Acute (4) Hypoxia Current Visit: Yes Status: Acute (5) Nausea and vomiting Current Visit: Yes Status: Acute Qualifiers: Vomiting type: unspecified Qualified Code(s): R11.2 - Nausea with vomiting, unspecified (6) Obesity hypoventilation syndrome Current Visit: Yes Status: Acute (7) Diabetes Current Visit: No Status: Chronic (8) HTN (hypertension) Current Visit: No Status: Chronic (9) Hyperlipidemia Current Visit: No Status: Chronic (10) Morbid obesity Current Visit: No Status: Chronic (11) Sleep apnea Current Visit: No Status: Chronic
--- NOTE | 2021-09-22 09:56 | History and Physical Report ---
History of Present Illness Date of examination: 09/22/21 Chief complaint: nausea/vomiting History of present illness: 51-year-old male with history of diastolic heart failure, atrial fibrillation on anticoagulation (warfarin), hypertension and obesity who presented to the emergency department with complaints of vomiting x1 day. Patient denies any other abdominal or GI complaints. He has had similar symptoms in the past whenever he had an viral infection. He reports being fully vaccinated against COVID-19. Currently his vomiting has resolved. Prior to discharge in the ED he was found to be in atrial fibrillation with RVR which did not improve when administered with IV Cardizem. Patient currently denies chest pain and shortness of breath. At baseline he uses 2 L of oxygen only at bedtime. Cardiology was consulted for management of atrial fibrillation, patient was admitted to telemetry floor. Past History Past Medical History: atrial fib, COPD, diabetes, heart failure, hypertension, hyperlipidemia Past Surgical History: No surgical history Social history: denies: smoking, alcohol abuse Family history: CAD, diabetes, hypertension Medications and Allergies Allergies Allergy/AdvReac Type Severity Reaction Status Date / Time No Known Allergies Allergy Verified 06/18/17 20:42 Home Medications Medication Instructions Recorded Confirmed Last Taken Type Furosemide [Lasix TAB] 40 mg PO QDAY 04/05/15 09/22/21 09/21/21 History Metformin HCl [Glucophage] 1,000 mg PO BID 04/05/15 09/22/21 09/21/21 History glipiZIDE [glipiZIDE XL] 10 mg PO BID 04/05/15 09/22/21 09/21/21 History Lisinopril 20 mg PO DAILY 08/10/16 09/22/21 09/21/21 History Sotalol HCl [Sotalol] 120 mg PO BID 08/10/16 09/22/21 09/21/21 History Warfarin [Coumadin] 10 mg PO QDAY 08/10/16 09/22/21 09/21/21 History hydrALAZINE [Apresoline TAB] 100 mg PO BID 08/10/16 09/22/21 09/21/21 History AtorvaSTATin [Lipitor] 20 mg PO QHS 06/18/17 09/22/21 09/21/21 History dilTIAZem CD [Cardizem CD] 180 mg PO QDAY 06/18/17 09/22/21 09/21/21 History Omeprazole Magnesium [PriLOSEC Otc] 20 mg PO BID 30 Days #60 tab NS 09/22/21 Unknown Rx Ondansetron [Zofran ODT TAB] 8 mg PO Q8HR 5 Days #15 tab.rapdis 09/22/21 Unknown Rx NS Active Meds: Active Medications Acetaminophen (Acetaminophen 325 Mg Tab) 650 mg PO Q4H PRN PRN Reason: Pain MILD(1-3)/Fever >100.5/LOWRY Atorvastatin Calcium (Atorvastatin 20 Mg Tab) 20 mg PO QHS RODNEY Digoxin (Digoxin 0.5 Mg/2 Ml Inj) 0.25 mg IV Q6H RODNEY Stop: 09/23/21 04:01 Diltiazem HCl (Diltiazem 90 Mg Tab) 90 mg PO Q6HR RODNEY Furosemide (Furosemide 40 Mg Tab) 40 mg PO BID RODNEY Hydralazine HCl (Hydralazine 100 Mg Tab) 100 mg PO BID RODNEY Lisinopril (Lisinopril 20 Mg Tab) 40 mg PO DAILY [facility] Morphine Sulfate (Morphine 4 Mg/1 Ml Inj) 4 mg IV Q4H PRN PRN Reason: Pain , Severe (7-10) Ondansetron HCl (Ondansetron 4 Mg/2 Ml Inj) 4 mg IV Q8H PRN PRN Reason: Nausea And Vomiting Oxycodone/Acetaminophen (Oxycodone /Acetaminophen 5-325mg Tab) 1 tab PO Q6H PRN PRN Reason: Pain, Moderate (4-6) Sodium Chloride (Sodium Chloride 0.9% 10 Ml Flush Syringe) 10 ml IV BID [facility] Sodium Chloride (Sodium Chloride 0.9% 10 Ml Flush Syringe) 10 ml IV PRN PRN PRN Reason: LINE FLUSH Review of Systems Constitutional: no weight loss, no weight gain, no fever, no chills, no night sweats, no fatigue, no malaise, no poor appetite Ears, nose, mouth and throat: deferred Cardiovascular: no chest pain, no orthopnea, no palpitations, no rapid/irregular heart beat, no edema, no lightheadedness, no shortness of breath Respiratory: cough, sleep apnea, no congestion Gastrointestinal: nausea, vomiting, no abdominal pain, no diarrhea, no change in bowel habits, no loss of appetite, no dyspepsia/bloating Genitourinary Male: no dysuria, no hematuria, no flank pain, no urinary hollis quency, no urinary hesitancy Musculoskeletal: no neck stiffness, no shooting arm pain, no arm numbness/tingling, no leg numbness/tingling, no morning stiffness Integumentary: deferred Neurological: no head injury, no weakness, no numbness, no tingling, no syncope, no headaches Psychiatric: no anxiety, no memory loss, no change in sleep habits, no insomnia Endocrine: no cold intolerance, no heat intolerance, no excessive thirst, no polydipsia, no polyuria, no high blood sugars, no low blood sugars Exam - Physical Exam Narrative exam: GENERAL: Obese male. In no acute distress. HEENT: Nasal cannula in place at 2 L/min CHEST/LUNGS: CTAB on supplemental O2. HEART/CARDIOVASCULAR: Irregularly irregular rhythm. No murmur, rubs or gallops appreciated. ABDOMEN: +BS. NT/ND. SKIN: No rashes noted. NEURO: No focal motor deficit. Follows all commands and is ambulatory. MUSCULOSKELETAL: No joint effusion EXTREMITIES: No clubbing or edema. Chronic venous stasis changes in bilateral lower extremity. PSYCH: Cooperative. - Constitutional Vitals: Temp Pulse Resp BP Pulse Ox 98.1 F 119 H 18 150/97 93 09/22/21 08:52 09/22/21 06:45 09/22/21 06:45 09/22/21 06:45 09/22/21 06:01 HEART Score - HEART Score Troponin: Troponin T < 0.010 ng/mL (0.00-0.029) 09/21/21 17:00 Results - Labs CBC & Chem 7: 09/21/21 14:52 09/23/21 04:19 Labs: Laboratory Last Values WBC 11.0 K/mm3 (4.5-11.0) 09/21/21 14:52 RBC 5.32 M/mm3 (3.65-5.03) H 09/21/21 14:52 Hgb 12.8 gm/dl (11.8-15.2) 09/21/21 14:52 Hct 41.4 % (35.5-45.6) 09/21/21 14:52 MCV 78 fl (84-94) L 09/21/21 14:52 MCH 24 pg (28-32) L 09/21/21 14:52 MCHC 31 % (32-34) L 09/21/21 14:52 RDW 17.7 % (13.2-15.2) H 09/21/21 14:52 Plt Count 262 K/mm3 (140-440) 09/21/21 14:52 Add Manual Diff Complete 09/21/21 14:52 Total Counted 100 09/21/21 14:52 Seg Neutrophils % Scratcher Tender 09/21/21 14:52 Seg Neuts % (Manual) 95.0 % (40.0-70.0) H 09/21/21 14:52 Band Neutrophils % 0 % 09/21/21 14:52 Lymphocytes % (Manual) 3.0 % (13.4-35.0) L 09/21/21 14:52 Reactive Lymphs % (Man) 0 % 09/21/21 14:52 Monocytes % (Manual) 2.0 % (0.0-7.3) 09/21/21 14:52 Eosinophils % (Manual) 0 % (0.0-4.3) 09/21/21 14:52 Basophils % (Manual) 0 % (0.0-1.8) 09/21/21 14:52 Metamyelocytes % 0 % 09/21/21 14:52 Myelocytes % 0 % 09/21/21 14:52 Promyelocytes % 0 % 09/21/21 14:52 Blast Cells % 0 % 09/21/21 14:52 Nucleated RBC % Not Reportable 09/21/21 14:52 Seg Neutrophils # Man 10.5 K/mm3 (1.8-7.7) H 09/21/21 14:52 Band Neutrophils # 0.0 K/mm3 09/21/21 14:52 Lymphocytes # (Manual) 0.3 K/mm3 (1.2-5.4) L 09/21/21 14:52 Abs React Lymphs (Man) 0.0 K/mm3 09/21/21 14:52 Monocytes # (Manual) 0.2 K/mm3 (0.0-0.8) 09/21/21 14:52 Eosinophils # (Manual) 0.0 K/mm3 (0.0-0.4) 09/21/21 14:52 Basophils # (Manual) 0.0 K/mm3 (0.0-0.1) 09/21/21 14:52 Metamyelocytes # 0.0 K/mm3 09/21/21 14:52 Myelocytes # 0.0 K/mm3 09/21/21 14:52 Promyelocytes # 0.0 K/mm3 09/21/21 14:52 Blast Cells # 0.0 K/mm3 09/21/21 14:52 WBC Morphology Not Reportable 09/21/21 14:52 Hypersegmented Neuts Not Reportable 09/21/21 14:52 Hyposegmented Neuts Not Reportable 09/21/21 14:52 Hypogranular Neuts Not Reportable 09/21/21 14:52 Smudge Cells Not Reportable 09/21/21 14:52 Toxic Granulation Not Reportable 09/21/21 14:52 Toxic Vacuolation Not Reportable 09/21/21 14:52 Dohle Bodies Not Reportable 09/21/21 14:52 Pelger-Huet Anomaly Not Reportable 09/21/21 14:52 Jamila Rods Not Reportable 09/21/21 14:52 Platelet Estimate Consistent w auto 09/21/21 14:52 Clumped Platelets Not Reportable 09/21/21 14:52 Plt Clumps, EDTA Not Reportable 09/21/21 14:52 Large Platelets Not Reportable 09/21/21 14:52 Giant Platelets Not Reportable 09/21/21 14:52 Platelet Satelliting Not Reportable 09/21/21 14:52 Plt Morphology Comment Not Reportable 09/21/21 14:52 RBC Morphology Not Reportable 09/21/21 14:52 Dimorphic RBCs Not Reportable 09/21/21 14:52 Polychromasia Not Reportable 09/21/21 14:52 Hypochromasia 1+ 09/21/21 14:52 Poikilocytosis Not Reportable 09/21/21 14:52 Anisocytosis Few 09/21/21 14:52 Microcytosis Not Reportable 09/21/21 14:52 Macrocytosis Not Reportable 09/21/21 14:52 Spherocytes Not Reportable 09/21/21 14:52 Pappenheimer Bodies Not Reportable 09/21/21 14:52 Sickle Cells Not Reportable 09/21/21 14:52 Target Cells Not Reportable 09/21/21 14:52 Tear Drop Cells Not Reportable 09/21/21 14:52 Ovalocytes Not Reportable 09/21/21 14:52 Helmet Cells Not Reportable 09/21/21 14:52 [place] Bodies Not Reportable 09/21/21 14:52 [place] Rings Not Reportable 09/21/21 14:52 [place] Cells Not Reportable 09/21/21 14:52 Bite Cells Not Reportable 09/21/21 14:52 Crenated Cell Not Reportable 09/21/21 14:52 Elliptocytes Not Reportable 09/21/21 14:52 Acanthocytes (Spur) Not Reportable 09/21/21 14:52 Rouleaux Not Reportable 09/21/21 14:52 Hemoglobin C Crystals Not Reportable 09/21/21 14:52 Schistocytes Not Reportable 09/21/21 14:52 Malaria parasites Not Reportable 09/21/21 14:52 [place] Bodies Not Reportable 09/21/21 14:52 Hem Pathologist Commnt No 09/21/21 14:52 Sodium 139 mmol/L (137-145) 09/21/21 14:52 Potassium 3.9 mmol/L (3.6-5.0) 09/21/21 14:52 Chloride 97.4 mmol/L (98-107) L 09/21/21 14:52 Carbon Dioxide 26 mmol/L (22-30) 09/21/21 14:52 Anion Gap 20 mmol/L 09/21/21 14:52 BUN 26 mg/dL (9-20) H 09/21/21 14:52 Creatinine 1.1 mg/dL (0.8-1.3) 09/21/21 14:52 Estimated GFR > 60 ml/min 09/21/21 14:52 BUN/Creatinine Ratio 24 % 09/21/21 14:52 Glucose 168 mg/dL (75-100) H 09/21/21 14:52 Calcium 9.8 mg/dL (8.4-10.2) 09/21/21 14:52 Total Bilirubin 0.40 mg/dL (0.1-1.2) 09/21/21 14:52 AST 10 units/L (5-40) 09/21/21 14:52 ALT 9 units/L (7-56) 09/21/21 14:52 Alkaline Phosphatase 55 units/L (35-129) 09/21/21 14:52 Troponin T < 0.010 ng/mL (0.00-0.029) 09/21/21 17:00 Total Protein 8.7 g/dL (6.3-8.2) H 09/21/21 14:52 Albumin 4.5 g/dL (3.9-5) 09/21/21 14:52 Albumin/Globulin Ratio 1.1 % 09/21/21 14:52 Lipase 28 units/L (13-60) 09/21/21 14:52 Urine Color Yellow (Yellow) 09/22/21 Unknown Urine Turbidity Clear (Clear) 09/22/21 Unknown Urine pH 5.0 (5.0-7.0) 09/22/21 Unknown Ur Specific Happy 1.020 (1.003-1.030) 09/22/21 Unknown Urine Protein >500 mg/dL (Negative) 09/22/21 Unknown Urine Glucose (UA) 50 mg/dL (Negative) 09/22/21 Unknown Urine Ketones Tr mg/dL (Negative) 09/22/21 Unknown Urine Blood Mod (Negative) 09/22/21 Unknown Urine Nitrite Neg (Negative) 09/22/21 Unknown Urine Bilirubin Neg (Negative) 09/22/21 Unknown Urine Urobilinogen < 2.0 mg/dL (<2.0) 09/22/21 Unknown Ur Leukocyte Esterase Neg (Negative) 09/22/21 Unknown Urine WBC (Auto) 2.0 /HPF (0.0-6.0) 09/22/21 Unknown Urine RBC (Auto) 2.0 /HPF (0.0-6.0) 09/22/21 Unknown U Epithel Cells (Auto) 2.0 /HPF (0-13.0) 09/22/21 Unknown Assessment and Plan Assessment and plan: #Acute on chronic atrial fibrillation with rapid ventricular response -Patient with history of eating foods. Anticoagulated on warfarin. -Warfarin restarted, will be dosed by pharmacy -INR ordered; goal 2-3 -patient takes diltiazem, sotalol for rate control -amiodarone drip started in the ER -Cardiology consulted; he follows with Dr. Mike outpatient #Acute on chronic hypoxic respiratory failure -patient uses supplemental O2 (2LPM) PRN, mostly at night -currently on NC @ 2LPM, will wean as tolerated -COVID PCR negative #Nausea/vomiting-resolved #Chronic heart failure with preserved ejection fraction, not in acute exacerbation -EF 55-60% per TTE from May 2021 -will resume lasix at home dose #Hypertension -will continue lisinopril and hydralazine at home doses -goal SBP <160 #Type 2 diabetes, [id number] -patient takes metformin and glipizide at home -will start SSI and accuchecks at home -will continue to monitor #Obstructive sleep apnea -patient uses BiPAP at home -CPAP qhs ordered #Morbid obesity #Obesity hypoventilation syndrome - Counseled patient on the importance of weight loss, incorporating exercise, and dietary changes (lean meats, fresh fruits and vegetables, and water intake). Patient expresses understanding. - Time: +15 min #Advanced care planning -Disease education conducted, care plan discussed, diagnoses discussed, prognosis discussed, and patient acknowledges understanding with care plan -Time: +30 min Advance Directives: No VTE prophylaxis?: Not ordered Contraindication Mechanical VTE Prophylaxis: Contraindicated Reason for no VTE Prophylaxis: Medical contraindication Plan of care discussed with patient/family: Yes
[2021-09-22] MEDS ORDERED: FUROSEMIDE 20 MG TAB PO SCH (10:00)
[2021-09-22] MEDS: DIGOXIN 0.5 MG/2 ML INJ IV SCH ×3 (10:30→21:02)
[2021-09-22] MEDS ORDERED: DEXTROSE 50% IN WATER (25GM) 50 ML SYRINGE IV PRN (10:30)
[2021-09-22] MEDS: LISINOPRIL 20 MG TAB PO SCH (10:31)
[2021-09-22] MEDS: FUROSEMIDE 40 MG TAB PO SCH ×2 (10:33→21:10)
[2021-09-22] MEDS: hydrALAZINE 100 MG TAB PO SCH ×2 (10:33→21:10)
[2021-09-22] MEDS: ONDANSETRON 4 MG/2 ML INJ IV PRN ×2 (12:19→21:07)
[2021-09-22] MEDS: INSULIN REGULAR, HUMAN 100 UNITS/1 ML SUB-Q SCH ×3 (12:32→23:55)
[2021-09-22 14:58] LABS: INR 2.12 (0.87-1.13)
[2021-09-22] MEDS ORDERED: WARFARIN 10 MG TAB PO SCH (17:00)
[2021-09-23] MEDS: DIGOXIN 0.5 MG/2 ML INJ IV SCH (04:05)
[2021-09-23 05:33] LABS: BUN/Creatinine Ratio 17; Blood Urea Nitrogen 15 mg/dL (9-20); Calcium 9.4 mg/dL (8.4-10.2); Hemolysis Index 9; INR 2.45 (0.87-1.13)
[2021-09-23] MEDS: INSULIN REGULAR, HUMAN 100 UNITS/1 ML SUB-Q SCH ×4 (07:41→21:42)
[2021-09-23] MEDS ORDERED: POTASSIUM CHLORIDE ER 20 MEQ TAB PO SCH (08:00)
[2021-09-23] MEDS: hydrALAZINE 100 MG TAB PO SCH ×2 (09:14→21:41)
[2021-09-23] MEDS: LISINOPRIL 20 MG TAB PO SCH (09:14)
[2021-09-23] MEDS: FUROSEMIDE 40 MG TAB PO SCH ×2 (09:15→21:41)
[2021-09-23] MEDS: dilTIAZem CD 120 MG CAP PO SCH (09:46)
[2021-09-23] MEDS: dilTIAZem CD 240 MG CAP PO SCH (09:46)
[2021-09-23] MEDS: METOPROLOL TARTRATE 50 MG TAB PO SCH ×2 (09:47→21:41)
[2021-09-23] MEDS ORDERED: dilTIAZem CD 300 MG CAP PO SCH (10:00)
--- NOTE | 2021-09-23 10:32 | Progress Note ---
Assessment and Plan Patient is a 51-year-old male with a PMHx of morbid obesity, sleep apnea, paroxsimal atrial fibrillation, Chronic diastolic dysfunction, chronic renal insufficiency, HTN, DM, who presents today with complaint of nausea and vomiting since yesterday morning A. fib with RVR Nausea/vomiting ABD pain Chronic diastolic dysfunction Chronic renal insufficiency Hypertension Diabetes Sleep apnea Morbid obesity Echo 05/18/2021- Contrast was utilized. There is normal LV systolic function. The estimated LV ejection fraction is normal at 55-60%. There is moderate concentric LV hypertrophy. Normal left atrial pressure and diastolic function. There is normal right ventricular size, wall dimension, and systolic function. The LA volume is mildly increased. There is no aortic valve stenosis or regurgitation. There is mild aortic valve sclerosis without significant stenosis. There is no mitral regurgitation. There is mild tricuspid regurgitation. The estimated RV systolic pressure is 39.29 mmHg. There is trivial pulmonic regurgitation. The ascending aorta is mildly dilated. Ascending Aortic Diameter: 3.94 cm. No left ventricular thrombus noted with LV contrast images. Cardiac cath 08/10/2016-normal coronaries, mild luminal irregularities in the LAD and diagonal, moderate tortuosity of vessels. RCA is large and patent and dominant. Normal LV function. Normal left main. Outpatient medications: Furosemide 40 mg p.o. twice daily, atorvastatin 20 mg p.o. nightly, hydralazine 100 mg p.o. twice daily, lisinopril 40 mg p.o. daily, sotalol 80 mg p.o. twice daily, warfarin, metolazone 2.5 mg p.o. every 72 hours Plan: EKG shows A. fib with RVR rate 121 with PVCs. No acute hemic changes. Troponin negative x1. Patient denies any complaint of chest pain Telemetry reviewed patient still A. fib 90s to 100s episodes into the 120s Will convert to Cardizem CD 360 mg p.o. daily. We will also initiate digoxin 0.25 mg p.o. daily and metoprolol 50 mg p.o. twice daily for rate control Continue outpatient Lasix, atorvastatin, hydralazine, lisinopril Anticoagulation with warfarin pharmacy to dose COVID PCR negative Discussed plan of care with patient who verbalized understanding and agreement Patient seen in conjunction with Dr. Mike who agrees with this plan of care - Patient Problems (1) Chronic diastolic (congestive) heart failure Current Visit: Yes Status: Acute (2) Atrial fibrillation with RVR Current Visit: Yes Status: Acute (3) Epigastric pain Current Visit: Yes Status: Acute (4) Hypoxia Current Visit: Yes Status: Acute (5) Nausea and vomiting Current Visit: Yes Status: Acute Qualifiers: Vomiting type: unspecified Qualified Code(s): R11.2 - Nausea with vomiting, unspecified (6) Obesity hypoventilation syndrome Current Visit: Yes Status: Acute (7) Diabetes Current Visit: No Status: Chronic (8) HTN (hypertension) Current Visit: No Status: Chronic (9) Hyperlipidemia Current Visit: No Status: Chronic (10) Morbid obesity Current Visit: No Status: Chronic (11) Sleep apnea Current Visit: No Status: Chronic Subjective Date of service: 09/23/21 Principal diagnosis: A. fib with RVR Interval history: Patient sitting in chair in no acute distress. Patient reports he is no longer vomiting but does report belching. A. fib trend 90s to 100s on monitor with episodes into the 120s Objective Vital Signs Temp Pulse Resp BP Pulse Ox 09/23/21 08:28 95 09/23/21 07:44 98 09/23/21 05:58 122 H 09/23/21 04:05 97 H 152/107 09/23/21 03:00 98 09/23/21 00:29 95 H 148/75 09/22/21 23:33 98.2 F 92 H 18 148/75 98 09/22/21 23:10 89 20 99 09/22/21 21:02 80 159/100 09/22/21 20:45 22 159/100 09/22/21 15:56 18 96 09/22/21 15:52 98.6 F 18 188/111 09/22/21 15:37 110 H 09/22/21 12:07 98.1 F 124 H 18 167/98 95 09/22/21 10:41 140 H 19 194/108 96 - Physical Examination HEENT: Positive: PERRL, Normocephaly Cardiac: Positive: irregularly irregular Lungs: Positive: Normal Breath Sounds Neuro: Positive: Grossly Intact Abdomen: Positive: Soft Skin: Negative: Rash, Suspicious Lesions, Ulceration Extremities: Present: upper extr. pulses, edema - Labs and Meds Coagulation 09/22/21 09/23/21 Range/Units 12:41 04:19 PT 26.5 H 29.8 H (12.2-14.9) Sec. INR 2.12 H 2.45 H (0.87-1.13) Comprehensive Metabolic Panel 09/23/21 Range/Units 04:19 Sodium 136 L (137-145) mmol/L Potassium 3.5 L (3.6-5.0) mmol/L Chloride 97.6 L (98-107) mmol/L Carbon Dioxide 28 (22-30) mmol/L BUN 15 (9-20) mg/dL Creatinine 0.9 (0.8-1.3) mg/dL Glucose 150 H (75-100) mg/dL Calcium 9.4 (8.4-10.2) mg/dL - Imaging and Cardiology Echo: report reviewed - Telemetry EKG Rhythm: Atrial Fibrillation - EKG Supraventricular dysrhythmia: atrial fibrillation
--- NOTE | 2021-09-23 12:26 | Progress Note ---
Assessment and Plan Assessment and plan: #Acute on chronic atrial fibrillation with rapid ventricular response -Patient with history of eating foods. Anticoagulated on warfarin. -Warfarin restarted, will be dosed by pharmacy -INR ordered; goal 2-3 -diltiazem 360 qday, digoxin 0.25mg qday and metoprolol 50mg BID started by Cardiology for rate control -Cardiology following, assistance appreciated #Acute on chronic hypoxic respiratory failure -patient uses supplemental O2 (2LPM) PRN, mostly at night -currently on NC @ 2LPM, will wean as tolerated -COVID PCR negative #Nausea/vomiting-resolved #Chronic heart failure with preserved ejection fraction, not in acute exacerbation -EF 55-60% per TTE from May 2021 -continue lasix at home dose #Hypertension -will continue lisinopril and hydralazine at home doses -goal SBP <160 #Type 2 diabetes, [id number] -patient takes metformin and glipizide at home -will start SSI and accuchecks at home -will continue to monitor #Obstructive sleep apnea -patient uses BiPAP at home -CPAP qhs ordered, patient will use home machine #Morbid obesity #Obesity hypoventilation syndrome - Counseled patient on the importance of weight loss, incorporating exercise, and dietary changes (lean meats, fresh fruits and vegetables, and water intake). Patient expresses understanding. - Time: +15 min #Advanced care planning -Disease education conducted, care plan discussed, diagnoses discussed, progno sis discussed, and patient acknowledges understanding with care plan -Time: +30 min History Interval history: No acute events overnight. Patient reports feeling tired. Has noticed no worsening shortness of breath and currently has no chest pain. We discussed current care plan which patient agrees with. Hospitalist Physical - Physical exam Narrative exam: GENERAL: Obese male. Sitting in a chair, in no acute distress. HEENT: Nasal cannula in place at 2 L/min CHEST/LUNGS: CTAB on supplemental O2. HEART/CARDIOVASCULAR: Irregularly irregular rhythm. No murmur, rubs or gallops appreciated. ABDOMEN: +BS. NT/ND. SKIN: No rashes noted. NEURO: No focal motor deficit. Follows all commands and is ambulatory. MUSCULOSKELETAL: No joint effusion EXTREMITIES: No clubbing or edema. Chronic venous stasis changes in bilateral lower extremity. PSYCH: Cooperative. - Constitutional Vitals: Temp Pulse Resp BP Pulse Ox 98.2 F 122 H 18 152/107 95 09/22/21 23:33 09/23/21 05:58 09/22/21 23:33 09/23/21 04:05 09/23/21 08:28 General appearance: Present: no acute distress HEART Score - HEART Score Troponin: Troponin T < 0.010 ng/mL (0.00-0.029) 09/21/21 17:00 Results - Labs CBC & Chem 7: 09/21/21 14:52 09/23/21 04:19 Labs: Laboratory Last Values WBC 11.0 K/mm3 (4.5-11.0) 09/21/21 14:52 RBC 5.32 M/mm3 (3.65-5.03) H 09/21/21 14:52 Hgb 12.8 gm/dl (11.8-15.2) 09/21/21 14:52 Hct 41.4 % (35.5-45.6) 09/21/21 14:52 MCV 78 fl (84-94) L 09/21/21 14:52 MCH 24 pg (28-32) L 09/21/21 14:52 MCHC 31 % (32-34) L 09/21/21 14:52 RDW 17.7 % (13.2-15.2) H 09/21/21 14:52 Plt Count 262 K/mm3 (140-440) 09/21/21 14:52 Add Manual Diff Complete 09/21/21 14:52 Total Counted 100 09/21/21 14:52 Seg Neutrophils % Production Machine Computer Operator 09/21/21 14:52 Seg Neuts % (Manual) 95.0 % (40.0-70.0) H 09/21/21 14:52 Band Neutrophils % 0 % 09/21/21 14:52 Lymphocytes % (Manual) 3.0 % (13.4-35.0) L 09/21/21 14:52 Reactive Lymphs % (Man) 0 % 09/21/21 14:52 Monocytes % (Manual) 2.0 % (0.0-7.3) 09/21/21 14:52 Eosinophils % (Manual) 0 % (0.0-4.3) 09/21/21 14:52 Basophils % (Manual) 0 % (0.0-1.8) 09/21/21 14:52 Metamyelocytes % 0 % 09/21/21 14:52 Myelocytes % 0 % 09/21/21 14:52 Promyelocytes % 0 % 09/21/21 14:52 Blast Cells % 0 % 09/21/21 14:52 Nucleated RBC % Not Reportable 09/21/21 14:52 Seg Neutrophils # Man 10.5 K/mm3 (1.8-7.7) H 09/21/21 14:52 Band Neutrophils # 0.0 K/mm3 09/21/21 14:52 Lymphocytes # (Manual) 0.3 K/mm3 (1.2-5.4) L 09/21/21 14:52 Abs React Lymphs (Man) 0.0 K/mm3 09/21/21 14:52 Monocytes # (Manual) 0.2 K/mm3 (0.0-0.8) 09/21/21 14:52 Eosinophils # (Manual) 0.0 K/mm3 (0.0-0.4) 09/21/21 14:52 Basophils # (Manual) 0.0 K/mm3 (0.0-0.1) 09/21/21 14:52 Metamyelocytes # 0.0 K/mm3 09/21/21 14:52 Myelocytes # 0.0 K/mm3 09/21/21 14:52 Promyelocytes # 0.0 K/mm3 09/21/21 14:52 Blast Cells # 0.0 K/mm3 09/21/21 14:52 WBC Morphology Not Reportable 09/21/21 14:52 Hypersegmented Neuts Not Reportable 09/21/21 14:52 Hyposegmented Neuts Not Reportable 09/21/21 14:52 Hypogranular Neuts Not Reportable 09/21/21 14:52 Smudge Cells Not Reportable 09/21/21 14:52 Toxic Granulation Not Reportable 09/21/21 14:52 Toxic Vacuolation Not Reportable 09/21/21 14:52 Dohle Bodies Not Reportable 09/21/21 14:52 Pelger-Huet Anomaly Not Reportable 09/21/21 14:52 Jamila Rods Not Reportable 09/21/21 14:52 Platelet Estimate Consistent w auto 09/21/21 14:52 Clumped Platelets Not Reportable 09/21/21 14:52 Plt Clumps, EDTA Not Reportable 09/21/21 14:52 Large Platelets Not Reportable 09/21/21 14:52 Giant Platelets Not Reportable 09/21/21 14:52 Platelet Satelliting Not Reportable 09/21/21 14:52 Plt Morphology Comment Not Reportable 09/21/21 14:52 RBC Morphology Not Reportable 09/21/21 14:52 Dimorphic RBCs Not Reportable 09/21/21 14:52 Polychromasia Not Reportable 09/21/21 14:52 Hypochromasia 1+ 09/21/21 14:52 Poikilocytosis Not Reportable 09/21/21 14:52 Anisocytosis Few 09/21/21 14:52 Microcytosis Not Reportable 09/21/21 14:52 Macrocytosis Not Reportable 09/21/21 14:52 Spherocytes Not Reportable 09/21/21 14:52 Pappenheimer Bodies Not Reportable 09/21/21 14:52 Sickle Cells Not Reportable 09/21/21 14:52 Target Cells Not Reportable 09/21/21 14:52 Tear Drop Cells Not Reportable 09/21/21 14:52 Ovalocytes Not Reportable 09/21/21 14:52 Helmet Cells Not Reportable 09/21/21 14:52 [place] Bodies Not Reportable 09/21/21 14:52 [place] Rings Not Reportable 09/21/21 14:52 Betty Cells Not Reportable 09/21/21 14:52 Bite Cells Not Reportable 09/21/21 14:52 Crenated Cell Not Reportable 09/21/21 14:52 Elliptocytes Not Reportable 09/21/21 14:52 Acanthocytes (Spur) Not Reportable 09/21/21 14:52 Rouleaux Not Reportable 09/21/21 14:52 Hemoglobin C Crystals Not Reportable 09/21/21 14:52 Schistocytes Not Reportable 09/21/21 14:52 Malaria parasites Not Reportable 09/21/21 14:52 Tyson Bodies Not Reportable 09/21/21 14:52 Hem Pathologist Commnt No 09/21/21 14:52 PT 29.8 Sec. (12.2-14.9) H 09/23/21 04:19 INR 2.45 (0.87-1.13) H 09/23/21 04:19 Sodium 136 mmol/L (137-145) L 09/23/21 04:19 Potassium 3.5 mmol/L (3.6-5.0) L 09/23/21 04:19 Chloride 97.6 mmol/L (98-107) L 09/23/21 04:19 Carbon Dioxide 28 mmol/L (22-30) 09/23/21 04:19 Anion Gap 14 mmol/L 09/23/21 04:19 BUN 15 mg/dL (9-20) 09/23/21 04:19 Creatinine 0.9 mg/dL (0.8-1.3) 09/23/21 04:19 Estimated GFR > 60 ml/min 09/23/21 04:19 BUN/Creatinine Ratio 17 % 09/23/21 04:19 Glucose 150 mg/dL (75-100) H 09/23/21 04:19 POC Glucose 155 mg/dL (70-105) H 09/22/21 23:34 Calcium 9.4 mg/dL (8.4-10.2) 09/23/21 04:19 Magnesium 1.90 mg/dL (1.7-2.3) 09/23/21 04:19 Total Bilirubin 0.40 mg/dL (0.1-1.2) 09/21/21 14:52 AST 10 units/L (5-40) 09/21/21 14:52 ALT 9 units/L (7-56) 09/21/21 14:52 Alkaline Phosphatase 55 units/L (35-129) 09/21/21 14:52 Troponin T < 0.010 ng/mL (0.00-0.029) 09/21/21 17:00 Total Protein 8.7 g/dL (6.3-8.2) H 09/21/21 14:52 Albumin 4.5 g/dL (3.9-5) 09/21/21 14:52 Albumin/Globulin Ratio 1.1 % 09/21/21 14:52 Lipase 28 units/L (13-60) 09/21/21 14:52 Urine Color Yellow (Yellow) 09/22/21 Unknown Urine Turbidity Clear (Clear) 09/22/21 Unknown Urine pH 5.0 (5.0-7.0) 09/22/21 Unknown Ur Specific [place] 1.020 (1.003-1.030) 09/22/21 Unknown Urine Protein >500 mg/dL (Negative) 09/22/21 Unknown Urine Glucose (UA) 50 mg/dL (Negative) 09/22/21 Unknown Urine Ketones Tr mg/dL (Negative) 09/22/21 Unknown Urine Blood Mod (Negative) 09/22/21 Unknown Urine Nitrite Neg (Negative) 09/22/21 Unknown Urine Bilirubin Neg (Negative) 09/22/21 Unknown Urine Urobilinogen < 2.0 mg/dL (<2.0) 09/22/21 Unknown Ur Leukocyte Esterase Neg (Negative) 09/22/21 Unknown Urine WBC (Auto) 2.0 /HPF (0.0-6.0) 09/22/21 Unknown Urine RBC (Auto) 2.0 /HPF (0.0-6.0) 09/22/21 Unknown U Epithel Cells (Auto) 2.0 /HPF (0-13.0) 09/22/21 Unknown Coronavirus (PCR) Negative (Negative) 09/22/21 10:40 Sanchez/IV: Voiding Method Urinal Active Medications - Current Medications Current Medications: Generic Name Dose Route Start Last Admin Trade Name Freq PRN Reason Stop Dose Admin Acetaminophen 650 mg 09/22/21 09:00 Acetaminophen 325 Mg Tab PO Q4H PRN Pain MILD(1-3)/Fever >100.5/LOWRY Atorvastatin Calcium 20 mg 09/22/21 22:00 09/22/21 22:50 Atorvastatin 20 Mg Tab PO 20 mg QHS RODNEY Administration Dextrose 50 ml 09/22/21 10:30 Dextrose 50% In Water (25gm) 50 Ml Syringe IV Q30MIN PRN Hypoglycemia Protocol Digoxin 0.25 mg 09/23/21 17:00 Digoxin 0.25 Mg Tab PO DAILY@1700 RODNEY Diltiazem HCl 120 mg 09/23/21 10:00 09/23/21 09:46 Diltiazem Cd 120 Mg Cap PO 120 mg QDAY RODNEY Administration Diltiazem HCl 240 mg 09/23/21 10:00 09/23/21 09:46 Diltiazem Cd 240 Mg Cap PO 240 mg QDAY RODNEY Administration Furosemide 40 mg 09/22/21 10:00 09/23/21 09:15 Furosemide 40 Mg Tab PO 40 mg BID RODNEY Administration Hydralazine HCl 100 mg 09/22/21 10:00 09/23/21 09:14 Hydralazine 100 Mg Tab PO 100 mg BID RODNEY Administration Insulin Human Regular 0 units 09/22/21 11:30 09/23/21 07:41 Insulin Regular, Human 100 Units/1 Ml SUB-Q Not Given ACHS [facility] Protocol Lisinopril 40 mg 09/22/21 10:00 09/23/21 09:14 Lisinopril 20 Mg Tab PO 40 mg DAILY RODNEY Administration Metoprolol Tartrate 50 mg 09/23/21 10:00 09/23/21 09:47 Metoprolol Tartrate 50 Mg Tab PO 50 mg BID [facility] Administration Morphine Sulfate 4 mg 09/22/21 09:00 Morphine 4 Mg/1 Ml Inj IV Q4H PRN Pain , Severe (7-10) Ondansetron HCl 4 mg 09/22/21 09:00 09/22/21 21:07 Ondansetron 4 Mg/2 Ml Inj IV 4 mg Q8H PRN Administration Nausea And Vomiting Oxycodone/Acetaminophen 1 tab 09/22/21 09:00 Oxycodone /Acetaminophen 5-325mg Tab PO Q6H PRN Pain, Moderate (4-6) Sodium Chloride 10 ml 09/22/21 10:00 09/23/21 09:15 Sodium Chloride 0.9% 10 Ml Flush Syringe IV 10 ml BID RODNEY Administration Sodium Chloride 10 ml 09/22/21 09:00 Sodium Chloride 0.9% 10 Ml Flush Syringe IV PRN PRN LINE FLUSH Warfarin Sodium 10 mg 09/23/21 17:00 Warfarin 10 Mg Tab PO 09/24/21 16:59 ONCE@1700 NR
[2021-09-23] MEDS ORDERED: WARFARIN 10 MG TAB PO NR (17:00)
[2021-09-23] MEDS: DIGOXIN 0.25 MG TAB PO SCH (18:18)
--- NOTE | 2021-09-23 18:56 | Electrocardiograph Report ---
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
[2021-09-24 04:39] LABS: BUN/Creatinine Ratio 15; Blood Urea Nitrogen 16 mg/dL (9-20); Calcium 9.6 mg/dL (8.4-10.2); Hemolysis Index 6
[2021-09-24 04:45] LABS: INR 2.75 (0.87-1.13)
[2021-09-24] MEDS: METOPROLOL TARTRATE 50 MG TAB PO SCH ×4 (06:19→23:27)
[2021-09-24] MEDS: INSULIN REGULAR, HUMAN 100 UNITS/1 ML SUB-Q SCH ×4 (07:45→21:21)
[2021-09-24] MEDS: dilTIAZem CD 120 MG CAP PO SCH (10:09)
[2021-09-24] MEDS: hydrALAZINE 100 MG TAB PO SCH ×2 (10:09→21:21)
[2021-09-24] MEDS: dilTIAZem CD 240 MG CAP PO SCH (10:10)
[2021-09-24] MEDS: FUROSEMIDE 40 MG TAB PO SCH ×2 (10:11→21:21)
[2021-09-24] MEDS: POLYETHYLENE GLYCOL 3350 17 GM POWDER PO SCH (10:11)
[2021-09-24] MEDS: LISINOPRIL 20 MG TAB PO SCH (10:11)
--- NOTE | 2021-09-24 10:31 | Progress Note ---
Assessment and Plan Patient is a 51-year-old male with a PMHx of morbid obesity, sleep apnea, paroxsimal atrial fibrillation, Chronic diastolic dysfunction, chronic renal insufficiency, HTN, DM, who presents today with complaint of nausea and vomiting since yesterday morning A. fib with RVR Nausea/vomiting ABD pain Chronic diastolic dysfunction Chronic renal insufficiency Hypertension Diabetes Sleep apnea Morbid obesity Echo 05/18/2021- Contrast was utilized. There is normal LV systolic function. The estimated LV ejection fraction is normal at 55-60%. There is moderate concentric LV hypertrophy. Normal left atrial pressure and diastolic function. There is normal right ventricular size, wall dimension, and systolic function. The LA volume is mildly increased. There is no aortic valve stenosis or regurgitation. There is mild aortic valve sclerosis without significant stenosis. There is no mitral regurgitation. There is mild tricuspid regurgitation. The estimated RV systolic pressure is 39.29 mmHg. There is trivial pulmonic regurgitation. The ascending aorta is mildly dilated. Ascending Aortic Diameter: 3.94 cm. No left ventricular thrombus noted with LV contrast images. Cardiac cath 08/10/2016-normal coronaries, mild luminal irregularities in the LAD and diagonal, moderate tortuosity of vessels. RCA is large and patent and dominant. Normal LV function. Normal left main. Outpatient medications: Furosemide 40 mg p.o. twice daily, atorvastatin 20 mg p.o. nightly, hydralazine 100 mg p.o. twice daily, lisinopril 40 mg p.o. daily, sotalol 80 mg p.o. twice daily, warfarin, metolazone 2.5 mg p.o. every 72 hours Plan: Telemetry reviewed patient still A. fib 90s to 100s episodes into the 150s Continue Cardizem CD 360 mg p.o. daily and digoxin 0.25 mg p.o. daily Continue metoprolol 50 mg p.o. every 6 hours. Will convert to metoprolol 100 mg p.o. twice daily tomorrow Continue outpatient Lasix, atorvastatin, hydralazine, lisinopril Anticoagulation with warfarin pharmacy to dose Patient complains of not having a bowel movement will order MiraLAX Discussed plan of care with patient who verbalized understanding and agreement Patient has a follow-up appointment with Dr. Mike, [facility] site identification specialist, on September 30, 2021 at 10:45 AM in our [place] location. Phone #[phone] Patient seen in conjunction with Dr. Mike who agrees with this plan of care - Patient Problems (1) Chronic diastolic (congestive) heart failure Current Visit: Yes Status: Acute (2) Atrial fibrillation with RVR Current Visit: Yes Status: Acute (3) Epigastric pain Current Visit: Yes Status: Acute (4) Hypoxia Current Visit: Yes Status: Acute (5) Nausea and vomiting Current Visit: Yes Status: Acute Qualifiers: Vomiting type: unspecified Qualified Code(s): R11.2 - Nausea with vomiting, unspecified (6) Obesity hypoventilation syndrome Current Visit: Yes Status: Acute (7) Diabetes Current Visit: No Status: Chronic (8) HTN (hypertension) Current Visit: No Status: Chronic (9) Hyperlipidemia Current Visit: No Status: Chronic (10) Morbid obesity Current Visit: No Status: Chronic (11) Sleep apnea Current Visit: No Status: Chronic Subjective Date of service: 09/24/21 Principal diagnosis: A. fib with RVR Interval history: Patient sitting in chair in no acute distress. Patient reports he has not had bowel movement since before admission A. fib trend 90s to 100s on monitor with episodes into the 150s Objective Vital Signs Temp Pulse Pulse Resp BP BP Pulse Ox 09/24/21 10:11 104 H 158/106 09/24/21 10:10 97 H 158/106 09/24/21 10:09 97 H 158/106 09/24/21 08:00 97.7 F 173 H 134 H 22 158/106 96 09/24/21 06:19 140 H 09/24/21 04:53 98.1 F 20 162/90 09/23/21 22:38 98.2 F 20 169/109 09/23/21 22:00 92 09/23/21 20:00 111 H 09/23/21 19:36 97.7 F 98 H 20 143/82 89 - Physical Examination HEENT: Positive: PERRL, Normocephaly Neck: Positive: trachea midline Cardiac: Positive: irregularly irregular Lungs: Positive: Normal Breath Sounds Neuro: Positive: Grossly Intact Abdomen: Positive: Soft Skin: Negative: Rash, Suspicious Lesions, Ulceration Extremities: Present: upper extr. pulses, edema - Labs and Meds Coagulation 09/24/21 Range/Units 03:56 PT 32.8 H (12.2-14.9) Sec. INR 2.75 H (0.87-1.13) Comprehensive Metabolic Panel 09/24/21 Range/Units 03:56 Sodium 137 (137-145) mmol/L Potassium 3.8 (3.6-5.0) mmol/L Chloride 96.2 L (98-107) mmol/L Carbon Dioxide 31 H (22-30) mmol/L BUN 16 (9-20) mg/dL Creatinine 1.1 (0.8-1.3) mg/dL Glucose 138 H (75-100) mg/dL Calcium 9.6 (8.4-10.2) mg/dL - Imaging and Cardiology Echo: report reviewed - Telemetry EKG Rhythm: Atrial Fibrillation - EKG Supraventricular dysrhythmia: atrial fibrillation
--- NOTE | 2021-09-24 14:17 | Progress Note ---
Assessment and Plan Assessment and plan: #Acute on chronic atrial fibrillation with rapid ventricular response Remains rapid ventricular rate Cardiology increase metoprolol dose, continue digoxin and Cardizem -Patient with history of eating foods. Anticoagulated on warfarin. -Warfarin restarted, will be dosed by pharmacy -INR ordered; goal 2-3 -diltiazem 360 qday, digoxin 0.25mg qday and metoprolol 50mg every 6 hours started by Cardiology for rate control -Cardiology following, assistance appreciated #Acute on chronic hypoxic respiratory failure -patient uses supplemental O2 (2LPM) PRN, mostly at night -currently on NC @ 2LPM, will wean as tolerated -COVID PCR negative #Nausea/vomiting-resolved #Chronic heart failure with preserved ejection fraction, not in acute exacerbation -EF 55-60% per TTE from May 2021 -continue lasix at home dose #Hypertension -will continue lisinopril and hydralazine at home doses -goal SBP <160 #Type 2 diabetes, [id number] -patient takes metformin and glipizide at home -will start SSI and accuchecks at home -will continue to monitor #Obstructive sleep apnea -patient uses BiPAP at home -CPAP qhs ordered, patient will use home machine #Morbid obesity #Obesity hypoventilation syndrome - Counseled patient on the importance of weight loss, incorporating exercise, and dietary changes (lean meats, fresh fruits and vegetables, and water intake). Patient expresses understanding. - Time: +15 min #Advanced care planning -Disease education conducted, care plan discussed, diagnoses discussed, prognosis discussed, and patient acknowledges understanding with care plan -Time: +30 min We will closely monitor the patient and adjust management as needed Plan of care reviewed with the patient and his nurse I also discussed with pest control service representative Dr. Mike. Possible discharge home tomorrow if stable DC planning per case management Closely monitor patient and adjust management as needed Plan of care reviewed with the patient and his nurse DC planning per case management Possible discharge home tomorrow if stable History Interval history: I have seen and examined the patient at the bedside Patient's chart and medications reviewed Patient has A. fib with rapid ventricular rate Uncontrolled with the current regimen Cardiology increase metoprolol dose Patient is already on Cardizem and digoxin Vital signs noted Hospitalist Physical - Constitutional Vitals: Temp Pulse Resp BP Pulse Ox 98.0 F 110 H 20 149/102 92 09/24/21 12:00 09/24/21 12:28 09/24/21 12:00 09/24/21 12:28 09/24/21 12:00 General appearance: Present: no acute distress, well-nourished, obese (Morbidly obese) - EENT Eyes: Present: PERRL, EOM intact - Neck Neck: Present: supple, normal ROM - Respiratory Respiratory effort: normal Respiratory: bilateral: diminished, negative: rales, rhonchi, wheezing - Cardiovascular Rhythm: irregularly irregular Heart Sounds: Present: S1 & S2 (Tachycardia) - Extremities Extremities: no ischemia, No edema - Abdominal General gastrointestinal: soft, non-tender, non-distended, normal bowel sounds - Integumentary Integumentary: Present: clear, warm - Psychiatric Psychiatric: appropriate mood/affect, cooperative - Neurologic Neurologic: moves all extremities HEART Score - HEART Score Troponin: Troponin T < 0.010 ng/mL (0.00-0.029) 09/21/21 17:00 Results - Labs CBC & Chem 7: 09/21/21 14:52 09/24/21 03:56 Labs: Laboratory Last Values WBC 11.0 K/mm3 (4.5-11.0) 09/21/21 14:52 RBC 5.32 M/mm3 (3.65-5.03) H 09/21/21 14:52 Hgb 12.8 gm/dl (11.8-15.2) 09/21/21 14:52 Hct 41.4 % (35.5-45.6) 09/21/21 14:52 MCV 78 fl (84-94) L 09/21/21 14:52 MCH 24 pg (28-32) L 09/21/21 14:52 MCHC 31 % (32-34) L 09/21/21 14:52 RDW 17.7 % (13.2-15.2) H 09/21/21 14:52 Plt Count 262 K/mm3 (140-440) 09/21/21 14:52 Add Manual Diff Complete 09/21/21 14:52 Total Counted 100 09/21/21 14:52 Seg Neutrophils % Alarm Mechanic 09/21/21 14:52 Seg Neuts % (Manual) 95.0 % (40.0-70.0) H 09/21/21 14:52 Band Neutrophils % 0 % 09/21/21 14:52 Lymphocytes % (Manual) 3.0 % (13.4-35.0) L 09/21/21 14:52 Reactive Lymphs % (Man) 0 % 09/21/21 14:52 Monocytes % (Manual) 2.0 % (0.0-7.3) 09/21/21 14:52 Eosinophils % (Manual) 0 % (0.0-4.3) 09/21/21 14:52 Basophils % (Manual) 0 % (0.0-1.8) 09/21/21 14:52 Metamyelocytes % 0 % 09/21/21 14:52 Myelocytes % 0 % 09/21/21 14:52 Promyelocytes % 0 % 09/21/21 14:52 Blast Cells % 0 % 09/21/21 14:52 Nucleated RBC % Not Reportable 09/21/21 14:52 Seg Neutrophils # Man 10.5 K/mm3 (1.8-7.7) H 09/21/21 14:52 Band Neutrophils # 0.0 K/mm3 09/21/21 14:52 Lymphocytes # (Manual) 0.3 K/mm3 (1.2-5.4) L 09/21/21 14:52 Abs React Lymphs (Man) 0.0 K/mm3 09/21/21 14:52 Monocytes # (Manual) 0.2 K/mm3 (0.0-0.8) 09/21/21 14:52 Eosinophils # (Manual) 0.0 K/mm3 (0.0-0.4) 09/21/21 14:52 Basophils # (Manual) 0.0 K/mm3 (0.0-0.1) 09/21/21 14:52 Metamyelocytes # 0.0 K/mm3 09/21/21 14:52 Myelocytes # 0.0 K/mm3 09/21/21 14:52 Promyelocytes # 0.0 K/mm3 09/21/21 14:52 Blast Cells # 0.0 K/mm3 09/21/21 14:52 WBC Morphology Not Reportable 09/21/21 14:52 Hypersegmented Neuts Not Reportable 09/21/21 14:52 Hyposegmented Neuts Not Reportable 09/21/21 14:52 Hypogranular Neuts Not Reportable 09/21/21 14:52 Smudge Cells Not Reportable 09/21/21 14:52 Toxic Granulation Not Reportable 09/21/21 14:52 Toxic Vacuolation Not Reportable 09/21/21 14:52 Dohle Bodies Not Reportable 09/21/21 14:52 Pelger-Huet Anomaly Not Reportable 09/21/21 14:52 Jamila Rods Not Reportable 09/21/21 14:52 Platelet Estimate Consistent w auto 09/21/21 14:52 Clumped Platelets Not Reportable 09/21/21 14:52 Plt Clumps, EDTA Not Reportable 09/21/21 14:52 Large Platelets Not Reportable 09/21/21 14:52 Giant Platelets Not Reportable 09/21/21 14:52 Platelet Satelliting Not Reportable 09/21/21 14:52 Plt Morphology Comment Not Reportable 09/21/21 14:52 RBC Morphology Not Reportable 09/21/21 14:52 Dimorphic RBCs Not Reportable 09/21/21 14:52 Polychromasia Not Reportable 09/21/21 14:52 Hypochromasia 1+ 09/21/21 14:52 Poikilocytosis Not Reportable 09/21/21 14:52 Anisocytosis Few 09/21/21 14:52 Microcytosis Not Reportable 09/21/21 14:52 Macrocytosis Not Reportable 09/21/21 14:52 Spherocytes Not Reportable 09/21/21 14:52 Pappenheimer Bodies Not Reportable 09/21/21 14:52 Sickle Cells Not Reportable 09/21/21 14:52 Target Cells Not Reportable 09/21/21 14:52 Tear Drop Cells Not Reportable 09/21/21 14:52 Ovalocytes Not Reportable 09/21/21 14:52 Helmet Cells Not Reportable 09/21/21 14:52 [place] Bodies Not Reportable 09/21/21 14:52 [place] Rings Not Reportable 09/21/21 14:52 Betty Cells Not Reportable 09/21/21 14:52 Bite Cells Not Reportable 09/21/21 14:52 Crenated Cell Not Reportable 09/21/21 14:52 Elliptocytes Not Reportable 09/21/21 14:52 Acanthocytes (Spur) Not Reportable 09/21/21 14:52 Rouleaux Not Reportable 09/21/21 14:52 Hemoglobin C Crystals Not Reportable 09/21/21 14:52 Schistocytes Not Reportable 09/21/21 14:52 Malaria parasites Not Reportable 09/21/21 14:52 Tyson Bodies Not Reportable 09/21/21 14:52 Hem Pathologist Commnt No 09/21/21 14:52 PT 32.8 Sec. (12.2-14.9) H 09/24/21 03:56 INR 2.75 (0.87-1.13) H 09/24/21 03:56 Sodium 137 mmol/L (137-145) 09/24/21 03:56 Potassium 3.8 mmol/L (3.6-5.0) 09/24/21 03:56 Chloride 96.2 mmol/L (98-107) L 09/24/21 03:56 Carbon Dioxide 31 mmol/L (22-30) H 09/24/21 03:56 Anion Gap 14 mmol/L 09/24/21 03:56 BUN 16 mg/dL (9-20) 09/24/21 03:56 Creatinine 1.1 mg/dL (0.8-1.3) 09/24/21 03:56 Estimated GFR > 60 ml/min 09/24/21 03:56 BUN/Creatinine Ratio 15 % 09/24/21 03:56 Glucose 138 mg/dL (75-100) H 09/24/21 03:56 POC Glucose 167 mg/dL (70-105) H 09/24/21 11:26 Calcium 9.6 mg/dL (8.4-10.2) 09/24/21 03:56 Magnesium 1.90 mg/dL (1.7-2.3) 09/23/21 04:19 Total Bilirubin 0.40 mg/dL (0.1-1.2) 09/21/21 14:52 AST 10 units/L (5-40) 09/21/21 14:52 ALT 9 units/L (7-56) 09/21/21 14:52 Alkaline Phosphatase 55 units/L (35-129) 09/21/21 14:52 Troponin T < 0.010 ng/mL (0.00-0.029) 09/21/21 17:00 Total Protein 8.7 g/dL (6.3-8.2) H 09/21/21 14:52 Albumin 4.5 g/dL (3.9-5) 09/21/21 14:52 Albumin/Globulin Ratio 1.1 % 09/21/21 14:52 Lipase 28 units/L (13-60) 09/21/21 14:52 Urine Color Yellow (Yellow) 09/22/21 Unknown Urine Turbidity Clear (Clear) 09/22/21 Unknown Urine pH 5.0 (5.0-7.0) 09/22/21 Unknown Ur Specific [place] 1.020 (1.003-1.030) 09/22/21 Unknown Urine Protein >500 mg/dL (Negative) 09/22/21 Unknown Urine Glucose (UA) 50 mg/dL (Negative) 09/22/21 Unknown Urine Ketones Tr mg/dL (Negative) 09/22/21 Unknown Urine Blood Mod (Negative) 09/22/21 Unknown Urine Nitrite Neg (Negative) 09/22/21 Unknown Urine Bilirubin Neg (Negative) 09/22/21 Unknown Urine Urobilinogen < 2.0 mg/dL (<2.0) 09/22/21 Unknown Ur Leukocyte Esterase Neg (Negative) 09/22/21 Unknown Urine WBC (Auto) 2.0 /HPF (0.0-6.0) 09/22/21 Unknown Urine RBC (Auto) 2.0 /HPF (0.0-6.0) 09/22/21 Unknown U Epithel Cells (Auto) 2.0 /HPF (0-13.0) 09/22/21 Unknown Coronavirus (PCR) Negative (Negative) 09/22/21 10:40 Sanchez/IV: Voiding Method Urinal Active Medications - Current Medications Current Medications: Generic Name Dose Route Start Last Admin Trade Name Freq PRN Reason Stop Dose Admin Acetaminophen 650 mg 09/22/21 09:00 Acetaminophen 325 Mg Tab PO Q4H PRN Pain MILD(1-3)/Fever >100.5/LOWRY Atorvastatin Calcium 20 mg 09/22/21 22:00 09/23/21 21:41 Atorvastatin 20 Mg Tab PO 20 mg QHS RODNEY Administration Dextrose 50 ml 09/22/21 10:30 Dextrose 50% In Water (25gm) 50 Ml Syringe IV Q30MIN PRN Hypoglycemia Protocol Digoxin 0.25 mg 09/23/21 17:00 09/23/21 18:18 Digoxin 0.25 Mg Tab PO 0.25 mg DAILY@1700 RODNEY Administration Diltiazem HCl 120 mg 09/23/21 10:00 09/24/21 10:09 Diltiazem Cd 120 Mg Cap PO 120 mg QDAY RODNEY Administration Diltiazem HCl 240 mg 09/23/21 10:00 09/24/21 10:10 Diltiazem Cd 240 Mg Cap PO 240 mg QDAY RODNEY Administration Furosemide 40 mg 09/22/21 10:00 09/24/21 10:11 Furosemide 40 Mg Tab PO 40 mg BID RODNEY Administration Hydralazine HCl 100 mg 09/22/21 10:00 09/24/21 10:09 Hydralazine 100 Mg Tab PO 100 mg BID RODNEY Administration Insulin Human Regular 0 units 09/22/21 11:30 09/24/21 12:28 Insulin Regular, Human 100 Units/1 Ml SUB-Q 2 units ACHS RODNEY Administration Protocol Lisinopril 40 mg 09/22/21 10:00 09/24/21 10:11 Lisinopril 20 Mg Tab PO 40 mg DAILY RODNEY Administration Metoprolol Tartrate 50 mg 09/24/21 12:00 09/24/21 12:28 Metoprolol Tartrate 50 Mg Tab PO 09/25/21 00:01 50 mg Q6H RODNEY Administration Metoprolol Tartrate 100 mg 09/25/21 10:00 Metoprolol Tartrate 100 Mg Tab PO BID [facility] Morphine Sulfate 4 mg 09/22/21 09:00 Morphine 4 Mg/1 Ml Inj IV Q4H PRN Pain , Severe (7-10) Ondansetron HCl 4 mg 09/22/21 09:00 09/22/21 21:07 Ondansetron 4 Mg/2 Ml Inj IV 4 mg Q8H PRN Administration Nausea And Vomiting Oxycodone/Acetaminophen 1 tab 09/22/21 09:00 Oxycodone /Acetaminophen 5-325mg Tab PO Q6H PRN Pain, Moderate (4-6) Polyethylene Glycol 17 gm 09/24/21 10:00 09/24/21 10:11 Polyethylene Glycol 3350 17 Gm Powder PO 17 gm QDAY RODNEY Administration Sodium Chloride 10 ml 09/22/21 10:00 09/24/21 10:11 Sodium Chloride 0.9% 10 Ml Flush Syringe IV 10 ml BID RODNEY Administration Sodium Chloride 10 ml 09/22/21 09:00 Sodium Chloride 0.9% 10 Ml Flush Syringe IV PRN PRN LINE FLUSH Warfarin Sodium 7.5 mg 09/24/21 17:00 Warfarin 7.5 Mg Tab PO 09/25/21 16:59 DAILY@1700 NR Nutrition/Malnutrition Assess - Dietary Evaluation Nutrition/Malnutrition Findings: Nutrition Notes Start: 09/23/21 19:25 Freq: Status: Active Protocol: Document 09/23/21 19:25 DOROTEO (Rec: 09/23/21 19:49 DOROTEO [id number]) Nutrition Notes Initial or Follow up Assessment Current Diagnosis COPD,Diabetes,Hypertension, Respiratory Failure, Hyperlipidemia Other Pertinent Diagnosis Atrial Fibrilation w/RVR, HFpEF, ANGELITA, OHS. Current Diet Cardiac/Consistent Carbohydrates Diet (since B ). Labs/Tests 09/23: Na 136, K 3.5, Cl 97.6, Glu 150. Pertinent Medications 09/23: Warfarin 10 mg, others nutritionally unremarkable. Height 5 ft 4 in Weight 181 kg [place] Body Weight (kg) 59.09 BMI 68.5 Intake Prior to Admission Good Weight change and time frame Pt denies having loss body weight [employer]. Weight Status Morbidly Obese Subjective/Other Information RD consult for warfarine use assessment. No reports available on Pt's PO intake of meals at the time . Pt is on Nasal Cannula, O2 saturation @ 98%, according to Physical Assessment History notes. Pt has been warfarine user since 08/10/2016, not a candidate for nutrition education. Percent of energy/protein needs met: Prescribed Cardiac/Consistent Carbohydrates Diet provides for energy/protein needs (1, 977 Kcal/86 g) during LOS. Burn Absent Trauma Absent GI Symptoms None Food Allergy No Skin Integrity/Comment Assessment WNL. Minimum of two criteria No Fluid Accumulation N/A Reduced Angiography Nurse Strength N/A (non-severe) Protein-Calorie Malnutrition N\A #1 Nutrition Diagnosis No nutrition diagnosis at this time Is patient on ventilator? No Is Patient Ambulatory and/or Out of Bed Yes REE-([facility]-amb[facility]/OOB) [ [phone] [id number]] Kcal/Kg value to use for calculation 8 Approximate Energy Requirements Using 1448 kcal/Kg Calculation Used for Recommendations Kcal/kg Additional Notes Protein: 0.8-1 g/Kg AdjBW; 96- 120 g/day. Fluids: 1 ml/Kcal, or as per MD. Nutrition Intervention Change Diet Order: Continue Cardiac/Consistent Carbohydrates Diet. Revisit per MD consult or patient Sign Off request: Additional Comments Continue monitoring food tolerance, %PO intake of meals , and BM.
[2021-09-24] MEDS ORDERED: WARFARIN 7.5 MG TAB PO NR (17:00)
[2021-09-24] MEDS: DIGOXIN 0.25 MG TAB PO SCH (17:14)
[2021-09-25 05:32] LABS: INR 2.79 (0.87-1.13)
[2021-09-25] MEDS: INSULIN REGULAR, HUMAN 100 UNITS/1 ML SUB-Q SCH ×4 (07:39→21:49)
[2021-09-25] MEDS: FUROSEMIDE 40 MG TAB PO SCH ×2 (09:37→21:49)
[2021-09-25] MEDS: hydrALAZINE 100 MG TAB PO SCH (09:38)
[2021-09-25] MEDS: dilTIAZem CD 120 MG CAP PO SCH (09:39)
[2021-09-25] MEDS: dilTIAZem CD 240 MG CAP PO SCH ×2 (09:41→12:05)
[2021-09-25] MEDS: POLYETHYLENE GLYCOL 3350 17 GM POWDER PO SCH (09:41)
[2021-09-25] MEDS: LISINOPRIL 20 MG TAB PO SCH (09:41)
[2021-09-25] MEDS ORDERED: METOPROLOL TARTRATE 100 MG TAB PO SCH (10:00)
--- NOTE | 2021-09-25 12:09 | Progress Note ---
Assessment and Plan Assessment and plan: #Acute on chronic atrial fibrillation with rapid ventricular response Remains in rapid ventricular rate Patient's Cardizem was held by the nurse due to mild hypotension Patient's heart rate right now ranges between high 120s and 130s Advised the nurse to resume Cardizem Continue diltiazem 360 qday, digoxin 0.25mg qday and metoprolol 100 mg twice a day Cardiology following #Acute on chronic hypoxic respiratory failure -patient uses supplemental O2 (2LPM) PRN, mostly at night -currently on NC @ 2LPM, will wean as tolerated -COVID PCR negative #Nausea/vomiting-resolved #Chronic heart failure with preserved ejection fraction/diastolic CHF not in acute exacerbation -EF 55-60% per TTE from May 2021 -continue lasix at home dose #Hypertension -will continue lisinopril and hydralazine at home doses -goal SBP <160 #Type 2 diabetes, [id number] -patient takes metformin and glipizide at home -will start SSI and accuchecks at home -will continue to monitor #Obstructive sleep apnea -patient uses BiPAP at home -CPAP qhs ordered, patient will use home machine #Morbid obesity #Obesity hypoventilation syndrome - Counseled patient on the importance of weight loss, incorporating exercise, and dietary changes (lean meats, fresh fruits and vegetables, and water intake). Patient expresses understanding. - Time: +15 min #Advanced care planning -Disease education conducted, care plan discussed, diagnoses discussed, prognosis discussed, and patient acknowledges understanding with care plan -Time: +30 min Closely monitor patient and adjust management as needed Plan of care reviewed with the patient and his nurse We will closely monitor the patient Adjust medications, closely monitor heart rate and blood pressures As well as patient's clinical condition Will follow cardiology recommendations Safe discharge planning when patient is stable and cleared by cardiology Plan of care reviewed with the patient and his nurse I also discussed with cardiology nurse practitioner Ms. Deja Rocha History Interval history: I have seen and examined the patient at the bedside this morning Patient's chart and medications reviewed Patient with Richard hyde with rapid ventricular rate on multiple medications Cardizem was held this morning by the nurse due to mild hypotension Patient's heart rate is in 130s Patient has fluctuating heart rate and blood pressures this morning However patient does not have any symptoms of chest pain shortness of breath or palpitations Vital signs reviewed Hospitalist Physical - Constitutional Vitals: Temp Pulse Resp BP Pulse Ox 98.3 F 136 H 17 126/77 95 09/25/21 04:22 09/25/21 09:41 09/25/21 07:43 09/25/21 09:41 09/25/21 08:53 General appearance: Present: no acute distress, well-nourished, obese (Morbidly obese) - EENT Eyes: Present: PERRL, EOM intact - Neck Neck: Present: supple, normal ROM - Respiratory Respiratory effort: normal Respiratory: bilateral: diminished, negative: rales, rhonchi, wheezing - Cardiovascular Rhythm: regular Heart Sounds: Present: S1 & S2 - Extremities Extremities: no ischemia, No edema - Abdominal General gastrointestinal: soft, non-tender, non-distended, normal bowel sounds - Integumentary Integumentary: Present: clear, warm - Psychiatric Psychiatric: appropriate mood/affect, cooperative - Neurologic Neurologic: moves all extremities HEART Score - HEART Score Troponin: Troponin T < 0.010 ng/mL (0.00-0.029) 09/21/21 17:00 Results - Labs CBC & Chem 7: 09/21/21 14:52 09/24/21 03:56 Labs: Laboratory Last Values WBC 11.0 K/mm3 (4.5-11.0) 09/21/21 14:52 RBC 5.32 M/mm3 (3.65-5.03) H 09/21/21 14:52 Hgb 12.8 gm/dl (11.8-15.2) 09/21/21 14:52 Hct 41.4 % (35.5-45.6) 09/21/21 14:52 MCV 78 fl (84-94) L 09/21/21 14:52 MCH 24 pg (28-32) L 09/21/21 14:52 MCHC 31 % (32-34) L 09/21/21 14:52 RDW 17.7 % (13.2-15.2) H 09/21/21 14:52 Plt Count 262 K/mm3 (140-440) 09/21/21 14:52 Add Manual Diff Complete 09/21/21 14:52 Total Counted 100 09/21/21 14:52 Seg Neutrophils % Proof Sorter 09/21/21 14:52 Seg Neuts % (Manual) 95.0 % (40.0-70.0) H 09/21/21 14:52 Band Neutrophils % 0 % 09/21/21 14:52 Lymphocytes % (Manual) 3.0 % (13.4-35.0) L 09/21/21 14:52 Reactive Lymphs % (Man) 0 % 09/21/21 14:52 Monocytes % (Manual) 2.0 % (0.0-7.3) 09/21/21 14:52 Eosinophils % (Manual) 0 % (0.0-4.3) 09/21/21 14:52 Basophils % (Manual) 0 % (0.0-1.8) 09/21/21 14:52 Metamyelocytes % 0 % 09/21/21 14:52 Myelocytes % 0 % 09/21/21 14:52 Promyelocytes % 0 % 09/21/21 14:52 Blast Cells % 0 % 09/21/21 14:52 Nucleated RBC % Not Reportable 09/21/21 14:52 Seg Neutrophils # Man 10.5 K/mm3 (1.8-7.7) H 09/21/21 14:52 Band Neutrophils # 0.0 K/mm3 09/21/21 14:52 Lymphocytes # (Manual) 0.3 K/mm3 (1.2-5.4) L 09/21/21 14:52 Abs React Lymphs (Man) 0.0 K/mm3 09/21/21 14:52 Monocytes # (Manual) 0.2 K/mm3 (0.0-0.8) 09/21/21 14:52 Eosinophils # (Manual) 0.0 K/mm3 (0.0-0.4) 09/21/21 14:52 Basophils # (Manual) 0.0 K/mm3 (0.0-0.1) 09/21/21 14:52 Metamyelocytes # 0.0 K/mm3 09/21/21 14:52 Myelocytes # 0.0 K/mm3 09/21/21 14:52 Promyelocytes # 0.0 K/mm3 09/21/21 14:52 Blast Cells # 0.0 K/mm3 09/21/21 14:52 WBC Morphology Not Reportable 09/21/21 14:52 Hypersegmented Neuts Not Reportable 09/21/21 14:52 Hyposegmented Neuts Not Reportable 09/21/21 14:52 Hypogranular Neuts Not Reportable 09/21/21 14:52 Smudge Cells Not Reportable 09/21/21 14:52 Toxic Granulation Not Reportable 09/21/21 14:52 Toxic Vacuolation Not Reportable 09/21/21 14:52 Dohle Bodies Not Reportable 09/21/21 14:52 Pelger-Huet Anomaly Not Reportable 09/21/21 14:52 Jamila Rods Not Reportable 09/21/21 14:52 Platelet Estimate Consistent w auto 09/21/21 14:52 Clumped Platelets Not Reportable 09/21/21 14:52 Plt Clumps, EDTA Not Reportable 09/21/21 14:52 Large Platelets Not Reportable 09/21/21 14:52 Giant Platelets Not Reportable 09/21/21 14:52 Platelet Satelliting Not Reportable 09/21/21 14:52 Plt Morphology Comment Not Reportable 09/21/21 14:52 RBC Morphology Not Reportable 09/21/21 14:52 Dimorphic RBCs Not Reportable 09/21/21 14:52 Polychromasia Not Reportable 09/21/21 14:52 Hypochromasia 1+ 09/21/21 14:52 Poikilocytosis Not Reportable 09/21/21 14:52 Anisocytosis Few 09/21/21 14:52 Microcytosis Not Reportable 09/21/21 14:52 Macrocytosis Not Reportable 09/21/21 14:52 Spherocytes Not Reportable 09/21/21 14:52 Pappenheimer Bodies Not Reportable 09/21/21 14:52 Sickle Cells Not Reportable 09/21/21 14:52 Target Cells Not Reportable 09/21/21 14:52 Tear Drop Cells Not Reportable 09/21/21 14:52 Ovalocytes Not Reportable 09/21/21 14:52 Helmet Cells Not Reportable 09/21/21 14:52 [place] Bodies Not Reportable 09/21/21 14:52 [place] Rings Not Reportable 09/21/21 14:52 Betty Cells Not Reportable 09/21/21 14:52 Bite Cells Not Reportable 09/21/21 14:52 Crenated Cell Not Reportable 09/21/21 14:52 Elliptocytes Not Reportable 09/21/21 14:52 Acanthocytes (Spur) Not Reportable 09/21/21 14:52 Rouleaux Not Reportable 09/21/21 14:52 Hemoglobin C Crystals Not Reportable 09/21/21 14:52 Schistocytes Not Reportable 09/21/21 14:52 Malaria parasites Not Reportable 09/21/21 14:52 Tyson Bodies Not Reportable 09/21/21 14:52 Hem Pathologist Commnt No 09/21/21 14:52 PT 33.9 Sec. (12.2-14.9) H 09/25/21 04:17 INR 2.79 (0.87-1.13) H 09/25/21 04:17 Sodium 137 mmol/L (137-145) 09/24/21 03:56 Potassium 3.8 mmol/L (3.6-5.0) 09/24/21 03:56 Chloride 96.2 mmol/L (98-107) L 09/24/21 03:56 Carbon Dioxide 31 mmol/L (22-30) H 09/24/21 03:56 Anion Gap 14 mmol/L 09/24/21 03:56 BUN 16 mg/dL (9-20) 09/24/21 03:56 Creatinine 1.1 mg/dL (0.8-1.3) 09/24/21 03:56 Estimated GFR > 60 ml/min 09/24/21 03:56 BUN/Creatinine Ratio 15 % 09/24/21 03:56 Glucose 138 mg/dL (75-100) H 09/24/21 03:56 POC Glucose 211 mg/dL (70-105) H 09/25/21 11:11 Calcium 9.6 mg/dL (8.4-10.2) 09/24/21 03:56 Magnesium 1.90 mg/dL (1.7-2.3) 09/23/21 04:19 Total Bilirubin 0.40 mg/dL (0.1-1.2) 09/21/21 14:52 AST 10 units/L (5-40) 09/21/21 14:52 ALT 9 units/L (7-56) 09/21/21 14:52 Alkaline Phosphatase 55 units/L (35-129) 09/21/21 14:52 Troponin T < 0.010 ng/mL (0.00-0.029) 09/21/21 17:00 Total Protein 8.7 g/dL (6.3-8.2) H 09/21/21 14:52 Albumin 4.5 g/dL (3.9-5) 09/21/21 14:52 Albumin/Globulin Ratio 1.1 % 09/21/21 14:52 Lipase 28 units/L (13-60) 09/21/21 14:52 Urine Color Yellow (Yellow) 09/22/21 Unknown Urine Turbidity Clear (Clear) 09/22/21 Unknown Urine pH 5.0 (5.0-7.0) 09/22/21 Unknown Ur Specific [place] 1.020 (1.003-1.030) 09/22/21 Unknown Urine Protein >500 mg/dL (Negative) 09/22/21 Unknown Urine Glucose (UA) 50 mg/dL (Negative) 09/22/21 Unknown Urine Ketones Tr mg/dL (Negative) 09/22/21 Unknown Urine Blood Mod (Negative) 09/22/21 Unknown Urine Nitrite Neg (Negative) 09/22/21 Unknown Urine Bilirubin Neg (Negative) 09/22/21 Unknown Urine Urobilinogen < 2.0 mg/dL (<2.0) 09/22/21 Unknown Ur Leukocyte Esterase Neg (Negative) 09/22/21 Unknown Urine WBC (Auto) 2.0 /HPF (0.0-6.0) 09/22/21 Unknown Urine RBC (Auto) 2.0 /HPF (0.0-6.0) 09/22/21 Unknown U Epithel Cells (Auto) 2.0 /HPF (0-13.0) 09/22/21 Unknown Coronavirus (PCR) Negative (Negative) 09/22/21 10:40 Sanchez/IV: Voiding Method Urinal Active Medications - Current Medications Current Medications: Generic Name Dose Route Start Last Admin Trade Name Freq PRN Reason Stop Dose Admin Acetaminophen 650 mg 09/22/21 09:00 Acetaminophen 325 Mg Tab PO Q4H PRN Pain MILD(1-3)/Fever >100.5/LOWRY Atorvastatin Calcium 20 mg 09/22/21 22:00 09/24/21 21:21 Atorvastatin 20 Mg Tab PO 20 mg QHS RODNEY Administration Dextrose 50 ml 09/22/21 10:30 Dextrose 50% In Water (25gm) 50 Ml Syringe IV Q30MIN PRN Hypoglycemia Protocol Digoxin 0.25 mg 09/23/21 17:00 09/24/21 17:14 Digoxin 0.25 Mg Tab PO 0.25 mg DAILY@1700 [facility] Administration Diltiazem HCl 120 mg 09/23/21 10:00 09/25/21 09:39 Diltiazem Cd 120 Mg Cap PO Not Given QDAY [facility] Diltiazem HCl 240 mg 09/23/21 10:00 09/25/21 09:41 Diltiazem Cd 240 Mg Cap PO Not Given QDAY [facility] Furosemide 40 mg 09/22/21 10:00 09/25/21 09:37 Furosemide 40 Mg Tab PO 40 mg BID [facility] Administration Hydralazine HCl 100 mg 09/22/21 10:00 09/25/21 09:38 Hydralazine 100 Mg Tab PO Not Given BID [facility] Insulin Human Regular 0 units 09/22/21 11:30 09/25/21 11:51 Insulin Regular, Human 100 Units/1 Ml SUB-Q 3 units ACHS [facility] Administration Protocol Lisinopril 40 mg 09/22/21 10:00 09/25/21 09:41 Lisinopril 20 Mg Tab PO Not Given DAILY [facility] Metoprolol Tartrate 100 mg 09/25/21 10:00 09/25/21 09:37 Metoprolol Tartrate 100 Mg Tab PO 100 mg BID [facility] Administration Morphine Sulfate 4 mg 09/22/21 09:00 Morphine 4 Mg/1 Ml Inj IV Q4H PRN Pain , Severe (7-10) Ondansetron HCl 4 mg 09/22/21 09:00 09/22/21 21:07 Ondansetron 4 Mg/2 Ml Inj IV 4 mg Q8H PRN Administration Nausea And Vomiting Oxycodone/Acetaminophen 1 tab 09/22/21 09:00 Oxycodone /Acetaminophen 5-325mg Tab PO Q6H PRN Pain, Moderate (4-6) Polyethylene Glycol 17 gm 09/24/21 10:00 09/25/21 09:41 Polyethylene Glycol 3350 17 Gm Powder PO Not Given QDAY [facility] Sodium Chloride 10 ml 09/22/21 10:00 09/25/21 09:41 Sodium Chloride 0.9% 10 Ml Flush Syringe IV 10 ml BID [facility] Administration Sodium Chloride 10 ml 09/22/21 09:00 Sodium Chloride 0.9% 10 Ml Flush Syringe IV PRN PRN LINE FLUSH Warfarin Sodium 7.5 mg 09/24/21 17:00 09/24/21 17:15 Warfarin 7.5 Mg Tab PO 09/25/21 16:59 7.5 mg DAILY@1700 NR Administration Warfarin Sodium 5 mg 09/25/21 17:00 Warfarin 5 Mg Tab PO 09/25/21 17:01 DAILY@1700 ONE Nutrition/Malnutrition Assess - Dietary Evaluation Nutrition/Malnutrition Findings: Nutrition Notes Start: 09/23/21 19:25 Freq: Status: Active Protocol: Document 09/23/21 19:25 DOROTEO (Rec: 09/23/21 19:49 DOROTEO [id number]) Nutrition Notes Initial or Follow up Assessment Current Diagnosis COPD,Diabetes,Hypertension, Respiratory Failure, Hyperlipidemia Other Pertinent Diagnosis Atrial Fibrilation w/RVR, HFpEF, ANGELITA, OHS. Current Diet Cardiac/Consistent Carbohydrates Diet (since B ). Labs/Tests 09/23: Na 136, K 3.5, Cl 97.6, Glu 150. Pertinent Medications 09/23: Warfarin 10 mg, others nutritionally unremarkable. Height 5 ft 4 in Weight 181 kg [place] Body Weight (kg) 59.09 BMI 68.5 Intake Prior to Admission Good Weight change and time frame Pt denies having loss body weight [employer]. Weight Status Morbidly Obese Subjective/Other Information RD consult for warfarine use assessment. No reports available on Pt's PO intake of meals at the time . Pt is on Nasal Cannula, O2 saturation @ 98%, according to Physical Assessment History notes. Pt has been warfarine user since 08/10/2016, not a candidate for nutrition education. Percent of energy/protein needs met: Prescribed Cardiac/Consistent Carbohydrates Diet provides for energy/protein needs (1, 977 Kcal/86 g) during LOS. Burn Absent Trauma Absent GI Symptoms None Food Allergy No Skin Integrity/Comment Assessment WNL. 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 No Is Patient Ambulatory and/or Out of Bed Yes REE-([place] or-ambulatory/OOB) [ 3348.800 [id number]] Kcal/Kg value to use for calculation 8 Approximate Energy Requirements Using 1448 kcal/Kg Calculation Used for Recommendations Kcal/kg Additional Notes Protein: 0.8-1 g/Kg AdjBW; 96- 120 g/day. Fluids: 1 ml/Kcal, or as per MD. Nutrition Intervention Change Diet Order: Continue Cardiac/Consistent Carbohydrates Diet. Revisit per MD consult or patient Sign Off request: Additional Comments Continue monitoring food tolerance, %PO intake of meals , and BM.
[2021-09-25] MEDS: DIGOXIN 0.25 MG TAB PO SCH ×2 (12:22→17:40)
--- NOTE | 2021-09-25 15:19 | Progress Note ---
Assessment and Plan Assessment: PAF/Flutter with RVR Chronic HFpEF CKD HTN DM2 Morbid Obesity ANGELITA OHS Abd Pain / N/V (resolved) Echo 05/18/2021 - Contrast was utilized. There is normal LV systolic function. The estimated LV ejection fraction is normal at 55-60%. There is moderate concentric LV hypertrophy. Normal left atrial pressure and diastolic function. There is normal right ventricular size, wall dimension, and systolic function. The LA volume is mildly increased. There is no aortic valve stenosis or regurgitation. There is mild aortic valve sclerosis without significant stenosis. There is no mitral regurgitation. There is mild tricuspid regurgitation. The estimated RV systolic pressure is 39.29 mmHg. There is trivial pulmonic regurgitation. The ascending aorta is mildly dilated. Ascending Aortic Diameter: 3.94 cm. No left ventricular thrombus noted with LV contrast images. Cardiac cath 08/10/2016 - Normal coronaries. Mild luminal irregularities in the LAD and diagonal, moderate tortuosity of vessels. RCA is large and patent and dominant. Normal LV function. Normal left main. Plan: Continue anticoagulation with Warfarin for CVA prophylaxis. Will change Lopressor to 50mg q6h and Cardizem to 90mg q6h with hold parameters. Continue digoxin 250mcg daily. Discontinue Hydralazine to avoid reflex tachycardia. Hold Lisinopril given soft BP precluding admin of rate control medications. If unable to achieve rate control, may need to consider DCCV on Monday. Pt seen in conjunction with Dr. Odonnell, who agrees with the assessment and plan of care. - Patient Problems (1) Atrial fibrillation with RVR Current Visit: Yes Status: Acute Subjective Date of service: 09/25/21 Principal diagnosis: AF w RVR Interval history: No cardiac complaints. Remains in AF with fluctuating rate, up to the 130s. Not receiving all meds due to soft BP. No cardiac complaints. Objective Vital Signs Temp Pulse Pulse Resp BP BP Pulse Ox 09/25/21 12:22 130 H 97/71 09/25/21 09:41 136 H 126/77 09/25/21 09:39 139 H 126/77 09/25/21 09:37 136 H 129/77 09/25/21 08:53 95 09/25/21 07:43 61 17 99 09/25/21 04:22 98.3 F 70 16 124/79 93 09/24/21 23:27 79 09/24/21 22:46 98.2 F 68 16 117/75 95 09/24/21 20:28 100 09/24/21 20:00 134 H 22 96 09/24/21 19:43 99.0 F 57 L 16 165/96 90 09/24/21 17:15 91 H 159/103 09/24/21 17:14 91 H 159/103 09/24/21 16:00 98.0 F 91 H 20 159/103 93 - Physical Examination General: No Apparent Distress HEENT: Positive: EOMI, Normocephaly Neck: Negative: JVD/HJR Cardiac: Positive: irregularly irregular Lungs: Positive: Decreased Breath Sounds Neuro: Positive: Grossly Intact Abdomen: Positive: Soft Skin: Negative: Rash Musculoskeletal: No Pain Extremities: Present: edema, warm - Labs and Meds Coagulation 09/25/21 Range/Units 04:17 PT 33.9 H (12.2-14.9) Sec. INR 2.79 H (0.87-1.13) - Imaging and Cardiology EKG: report reviewed, image reviewed Echo: report reviewed Cardiac cath: report reviewed - Telemetry EKG Rhythm: Atrial Fibrillation - EKG Supraventricular dysrhythmia: atrial flutter AV and intraventricular conduction: right bundle branch block
[2021-09-25] MEDS ORDERED: WARFARIN 5 MG TAB PO ONE (17:00)
[2021-09-25] MEDS: METOPROLOL TARTRATE 50 MG TAB PO SCH ×2 (17:52→23:57)
[2021-09-26] MEDS: METOPROLOL TARTRATE 50 MG TAB PO SCH ×3 (05:41→17:21)
[2021-09-26 07:47] LABS: Hematocrit 42.3 % (35.5-45.6); Hemoglobin 13.2 gm/dl (11.8-15.2)
[2021-09-26 07:54] LABS: INR 2.32 (0.87-1.13)
[2021-09-26 08:03] LABS: Calcium 9.3 mg/dL (8.4-10.2)
--- NOTE | 2021-09-26 08:11 | Progress Note ---
Assessment and Plan Assessment: PAF/Flutter with RVR Chronic HFpEF CKD HTN DM2 Morbid Obesity ANGELITA OHS Abd Pain / N/V (resolved) Echo 05/18/2021 - Contrast was utilized. There is normal LV systolic function. The estimated LV ejection fraction is normal at 55-60%. There is moderate concentric LV hypertrophy. Normal left atrial pressure and diastolic function. There is normal right ventricular size, wall dimension, and systolic function. The LA volume is mildly increased. There is no aortic valve stenosis or regurgitation. There is mild aortic valve sclerosis without significant stenosis. There is no mitral regurgitation. There is mild tricuspid regurgitation. The estimated RV systolic pressure is 39.29 mmHg. There is trivial pulmonic regurgitation. The ascending aorta is mildly dilated. Ascending Aortic Diameter: 3.94 cm. No left ventricular thrombus noted with LV contrast images. Cardiac cath 08/10/2016 - Normal coronaries. Mild luminal irregularities in the LAD and diagonal, moderate tortuosity of vessels. RCA is large and patent and dominant. Normal LV function. Normal left main. Plan: Continue anticoagulation with Warfarin for CVA prophylaxis. Decrease digoxin to 125mcg daily in light of renal indices. Otherwise pt may be discharged today on Lopressor 100mg BID and Cardizem 120mg TID if VS remain stable. He will need Rx for Cardizem 120mg TID and new Rx for 125mcg daily of digoxin. Already has Rx for Lopressor 100mg BID. Difficult to obtain accurate BP readings due to body habitus. Cardizem can be converted to long-acting CD in the outpatient setting if pt continues to tolerate. Discontinue Hydralazine to avoid reflex tachycardia. Hold Lisinopril to allow for admin of rate control medications. Do not resume these meds at discharge. Follow-up with Dr. Mike in our [place] office on 09/30/2021 @ 10:45am ([phone]). Will recheck BMP prior to outpatient visit. Pt seen in conjunction with Dr. Odonnell, who agrees with the assessment and plan of care. - Patient Problems (1) Atrial fibrillation with RVR Current Visit: Yes Status: Acute Subjective Date of service: 09/26/21 Principal diagnosis: AF w RVR Interval history: Resting in bedside chair. C/o neck and back pain. No cardiac complaints. Remains in AF but rate much better controlled 70-80s, occasionally up to 110s with exertion. Objective Vital Signs Temp Pulse Pulse Resp BP BP Pulse Ox 09/26/21 07:24 97.9 F 86 18 116/79 97 09/26/21 06:00 87 09/26/21 05:41 87 134/81 09/26/21 03:42 87 134/81 09/26/21 03:25 97.5 F L 79 18 134/81 97 09/26/21 00:00 98.2 F 82 18 120/75 94 09/25/21 23:57 69 120/75 09/25/21 23:50 98.8 F 93 H 133/73 95 09/25/21 22:00 124 H 96 09/25/21 21:50 69 120/75 09/25/21 20:00 126 H 17 99 09/25/21 19:24 98.2 F 69 19 120/75 96 09/25/21 17:52 116 H 118/98 09/25/21 17:50 138 H 16 118/67 96 09/25/21 17:40 130 H 105/77 09/25/21 15:40 128 H 16 105/65 95 09/25/21 12:22 130 H 97/71 09/25/21 12:16 63 16 97/71 97 09/25/21 09:41 136 H 126/77 09/25/21 09:39 139 H 126/77 09/25/21 09:37 136 H 129/77 09/25/21 09:15 123/77 09/25/21 08:53 95 - Physical Examination General: No Apparent Distress HEENT: Positive: EOMI, Normocephaly Neck: Negative: JVD/HJR Cardiac: Positive: irregularly irregular Lungs: Positive: Decreased Breath Sounds Neuro: Positive: Grossly Intact Abdomen: Positive: Soft Skin: Negative: Rash Musculoskeletal: No Pain Extremities: Present: edema (chronic), warm - Labs and Meds Coagulation 09/26/21 Range/Units 07:14 PT 29.1 H (12.2-14.9) Sec. INR 2.32 H (0.87-1.13) CBC 09/26/21 Range/Units 07:14 Hgb 13.2 (11.8-15.2) gm/dl Hct 42.3 (35.5-45.6) % Comprehensive Metabolic Panel 09/26/21 Range/Units 07:14 Sodium 137 (137-145) mmol/L Potassium 3.7 (3.6-5.0) mmol/L Chloride 96.8 L (98-107) mmol/L Carbon Dioxide 28 (22-30) mmol/L BUN 27 H (9-20) mg/dL Creatinine 1.5 H (0.8-1.3) mg/dL Glucose 124 H (75-100) mg/dL Calcium 9.3 (8.4-10.2) mg/dL - Imaging and Cardiology EKG: report reviewed, image reviewed Echo: report reviewed Cardiac cath: report reviewed - Telemetry EKG Rhythm: Atrial Fibrillation - EKG Supraventricular dysrhythmia: atrial fibrillation AV and intraventricular conduction: right bundle branch block
[2021-09-26] MEDS: INSULIN REGULAR, HUMAN 100 UNITS/1 ML SUB-Q SCH ×4 (08:23→23:16)
--- NOTE | 2021-09-26 08:33 | Progress Note ---
Assessment and Plan Assessment and plan: Patient is in A. fib rate controlled on multiple medications Cardiology adjusted the meds/check the MAR #Acute on chronic atrial fibrillation with rapid ventricular response/rate control today Cardiology adjusted medications yesterday' Today patient is on digoxin 0.125 daily Cardizem 90 p.o. every 6 hours metoprolol 50 mg every 6 hours, rate controlled On Coumadin 5 mg nightly, therapeutic INR at 2.3 to We will monitor overnight And discharge home tomorrow morning if patient's heart rate and blood pressures are well controlled DC planning per case management We will also request PT evaluation for DC needs #Acute on chronic hypoxic respiratory failure -patient uses supplemental O2 (2LPM) PRN, mostly at night -currently on NC @ 2LPM, will wean as tolerated -COVID PCR negative Home O2 evaluation prior to discharge #Nausea/vomiting-resolved #Chronic heart failure with preserved ejection fraction/diastolic CHF not in acute exacerbation -EF 55-60% per TTE from May 2021 -continue lasix at home dose #Hypertension -will continue lisinopril and hydralazine at home doses -goal SBP <160 #Type 2 diabetes, [id number] -patient takes metformin and glipizide at home -will start SSI and accuchecks at home -will continue to monitor #Obstructive sleep apnea -patient uses BiPAP at home -CPAP qhs ordered, patient will use home machine #Morbid obesity #Obesity hypoventilation syndrome - Counseled patient on the importance of weight loss, incorporating exercise, and dietary changes (lean meats, fresh fruits and vegetables, and water intake). Patient expresses understanding. - Time: +15 min #Advanced care planning -Disease education conducted, care plan discussed, diagnoses discussed, prognosis discussed, and patient acknowledges understanding with care plan -Time: +30 min Closely monitor patient and adjust management as needed Plan of care reviewed with the patient and his nurse We will closely monitor the patient Adjust medications, closely monitor heart rate and blood pressures As well as patient's clinical condition Will follow cardiology recommendations Safe discharge planning when patient is stable and cleared by cardiology Plan of care reviewed with the patient and his nurse I also discussed with cardiology nurse practitioner Deja Rocha 09/26/2021; A. fib rate controlled today Cardiology adjusted the medications, closely monitor Home O2 evaluation prior to discharge Closely monitor and adjust management as needed Possible discharge today if cardiology clears We will closely monitor overnight, if patient's blood pressures and heart rate are well controlled Discharge tomorrow morning on the current regimen DC planning per case management Also check with physical therapy for discharge needs. Plan of care reviewed with the patient, his nurse. Cardiology recommendations noted and appreciated History Interval history: Seen and examined the patient at the bedside Patient's chart and medications reviewed Patient is sitting in chair comfortable No new complaints Vital signs Hospitalist Physical - Constitutional Vitals: Temp Pulse Resp BP Pulse Ox 97.9 F 126 H 17 116/79 99 09/26/21 07:24 09/26/21 08:00 09/26/21 08:00 09/26/21 07:24 09/26/21 08:00 General appearance: Present: no acute distress, well-nourished, obese (Morbidly obese) - EENT Eyes: Present: PERRL, EOM intact - Neck Neck: Present: supple, normal ROM - Respiratory Respiratory effort: normal, labored Respiratory: bilateral: diminished, negative: rales, rhonchi, wheezing - Cardiovascular Rhythm: regular Heart Sounds: Present: S1 & S2 - Extremities Extremities: no ischemia, No edema - Abdominal General gastrointestinal: soft, non-tender, non-distended, normal bowel sounds - Integumentary Integumentary: Present: clear, warm - Psychiatric Psychiatric: appropriate mood/affect, cooperative - Neurologic Neurologic: moves all extremities HEART Score - HEART Score Troponin: Troponin T < 0.010 ng/mL (0.00-0.029) 09/21/21 17:00 Results - Labs CBC & Chem 7: 09/26/21 07:14 09/26/21 07:14 Labs: Laboratory Last Values WBC 11.0 K/mm3 (4.5-11.0) 09/21/21 14:52 RBC 5.32 M/mm3 (3.65-5.03) H 09/21/21 14:52 Hgb 13.2 gm/dl (11.8-15.2) 09/26/21 07:14 Hct 42.3 % (35.5-45.6) 09/26/21 07:14 MCV 78 fl (84-94) L 09/21/21 14:52 MCH 24 pg (28-32) L 09/21/21 14:52 MCHC 31 % (32-34) L 09/21/21 14:52 RDW 17.7 % (13.2-15.2) H 09/21/21 14:52 Plt Count 262 K/mm3 (140-440) 09/21/21 14:52 Add Manual Diff Complete 09/21/21 14:52 Total Counted 100 09/21/21 14:52 Seg Neutrophils % Senior Ui Developer 09/21/21 14:52 Seg Neuts % (Manual) 95.0 % (40.0-70.0) H 09/21/21 14:52 Band Neutrophils % 0 % 09/21/21 14:52 Lymphocytes % (Manual) 3.0 % (13.4-35.0) L 09/21/21 14:52 Reactive Lymphs % (Man) 0 % 09/21/21 14:52 Monocytes % (Manual) 2.0 % (0.0-7.3) 09/21/21 14:52 Eosinophils % (Manual) 0 % (0.0-4.3) 09/21/21 14:52 Basophils % (Manual) 0 % (0.0-1.8) 09/21/21 14:52 Metamyelocytes % 0 % 09/21/21 14:52 Myelocytes % 0 % 09/21/21 14:52 Promyelocytes % 0 % 09/21/21 14:52 Blast Cells % 0 % 09/21/21 14:52 Nucleated RBC % Not Reportable 09/21/21 14:52 Seg Neutrophils # Man 10.5 K/mm3 (1.8-7.7) H 09/21/21 14:52 Band Neutrophils # 0.0 K/mm3 09/21/21 14:52 Lymphocytes # (Manual) 0.3 K/mm3 (1.2-5.4) L 09/21/21 14:52 Abs React Lymphs (Man) 0.0 K/mm3 09/21/21 14:52 Monocytes # (Manual) 0.2 K/mm3 (0.0-0.8) 09/21/21 14:52 Eosinophils # (Manual) 0.0 K/mm3 (0.0-0.4) 09/21/21 14:52 Basophils # (Manual) 0.0 K/mm3 (0.0-0.1) 09/21/21 14:52 Metamyelocytes # 0.0 K/mm3 09/21/21 14:52 Myelocytes # 0.0 K/mm3 09/21/21 14:52 Promyelocytes # 0.0 K/mm3 09/21/21 14:52 Blast Cells # 0.0 K/mm3 09/21/21 14:52 WBC Morphology Not Reportable 09/21/21 14:52 Hypersegmented Neuts Not Reportable 09/21/21 14:52 Hyposegmented Neuts Not Reportable 09/21/21 14:52 Hypogranular Neuts Not Reportable 09/21/21 14:52 Smudge Cells Not Reportable 09/21/21 14:52 Toxic Granulation Not Reportable 09/21/21 14:52 Toxic Vacuolation Not Reportable 09/21/21 14:52 Dohle Bodies Not Reportable 09/21/21 14:52 Pelger-Huet Anomaly Not Reportable 09/21/21 14:52 Jamila Rods Not Reportable 09/21/21 14:52 Platelet Estimate Consistent w auto 09/21/21 14:52 Clumped Platelets Not Reportable 09/21/21 14:52 Plt Clumps, EDTA Not Reportable 09/21/21 14:52 Large Platelets Not Reportable 09/21/21 14:52 Giant Platelets Not Reportable 09/21/21 14:52 Platelet Satelliting Not Reportable 09/21/21 14:52 Plt Morphology Comment Not Reportable 09/21/21 14:52 RBC Morphology Not Reportable 09/21/21 14:52 Dimorphic RBCs Not Reportable 09/21/21 14:52 Polychromasia Not Reportable 09/21/21 14:52 Hypochromasia 1+ 09/21/21 14:52 Poikilocytosis Not Reportable 09/21/21 14:52 Anisocytosis Few 09/21/21 14:52 Microcytosis Not Reportable 09/21/21 14:52 Macrocytosis Not Reportable 09/21/21 14:52 Spherocytes Not Reportable 09/21/21 14:52 Pappenheimer Bodies Not Reportable 09/21/21 14:52 Sickle Cells Not Reportable 09/21/21 14:52 Target Cells Not Reportable 09/21/21 14:52 Tear Drop Cells Not Reportable 09/21/21 14:52 Ovalocytes Not Reportable 09/21/21 14:52 Helmet Cells Not Reportable 09/21/21 14:52 [place] Bodies Not Reportable 09/21/21 14:52 [place] Rings Not Reportable 09/21/21 14:52 Betty Cells Not Reportable 09/21/21 14:52 Bite Cells Not Reportable 09/21/21 14:52 Crenated Cell Not Reportable 09/21/21 14:52 Elliptocytes Not Reportable 09/21/21 14:52 Acanthocytes (Spur) Not Reportable 09/21/21 14:52 Rouleaux Not Reportable 09/21/21 14:52 Hemoglobin C Crystals Not Reportable 09/21/21 14:52 Schistocytes Not Reportable 09/21/21 14:52 Malaria parasites Not Reportable 09/21/21 14:52 Tyson Bodies Not Reportable 09/21/21 14:52 Hem Pathologist Commnt No 09/21/21 14:52 PT 29.1 Sec. (12.2-14.9) H 09/26/21 07:14 INR 2.32 (0.87-1.13) H 09/26/21 07:14 Sodium 137 mmol/L (137-145) 09/26/21 07:14 Potassium 3.7 mmol/L (3.6-5.0) 09/26/21 07:14 Chloride 96.8 mmol/L (98-107) L 09/26/21 07:14 Carbon Dioxide 28 mmol/L (22-30) 09/26/21 07:14 Anion Gap 16 mmol/L 09/26/21 07:14 BUN 27 mg/dL (9-20) H 09/26/21 07:14 Creatinine 1.5 mg/dL (0.8-1.3) H 09/26/21 07:14 Estimated GFR 60 ml/min 09/26/21 07:14 BUN/Creatinine Ratio 18 % 09/26/21 07:14 Glucose 124 mg/dL (75-100) H 09/26/21 07:14 POC Glucose 131 mg/dL (70-105) H 09/26/21 07:52 Calcium 9.3 mg/dL (8.4-10.2) 09/26/21 07:14 Magnesium 1.90 mg/dL (1.7-2.3) 09/23/21 04:19 Total Bilirubin 0.40 mg/dL (0.1-1.2) 09/21/21 14:52 AST 10 units/L (5-40) 09/21/21 14:52 ALT 9 units/L (7-56) 09/21/21 14:52 Alkaline Phosphatase 55 units/L (35-129) 09/21/21 14:52 Troponin T < 0.010 ng/mL (0.00-0.029) 09/21/21 17:00 Total Protein 8.7 g/dL (6.3-8.2) H 09/21/21 14:52 Albumin 4.5 g/dL (3.9-5) 09/21/21 14:52 Albumin/Globulin Ratio 1.1 % 09/21/21 14:52 Lipase 28 units/L (13-60) 09/21/21 14:52 TSH 1.990 mlU/mL (0.270-4.200) 09/25/21 15:48 Urine Color Yellow (Yellow) 09/22/21 Unknown Urine Turbidity Clear (Clear) 09/22/21 Unknown Urine pH 5.0 (5.0-7.0) 09/22/21 Unknown Ur Specific [place] 1.020 (1.003-1.030) 09/22/21 Unknown Urine Protein >500 mg/dL (Negative) 09/22/21 Unknown Urine Glucose (UA) 50 mg/dL (Negative) 09/22/21 Unknown Urine Ketones Tr mg/dL (Negative) 09/22/21 Unknown Urine Blood Mod (Negative) 09/22/21 Unknown Urine Nitrite Neg (Negative) 09/22/21 Unknown Urine Bilirubin Neg (Negative) 09/22/21 Unknown Urine Urobilinogen < 2.0 mg/dL (<2.0) 09/22/21 Unknown Ur Leukocyte Esterase Neg (Negative) 09/22/21 Unknown Urine WBC (Auto) 2.0 /HPF (0.0-6.0) 09/22/21 Unknown Urine RBC (Auto) 2.0 /HPF (0.0-6.0) 09/22/21 Unknown U Epithel Cells (Auto) 2.0 /HPF (0-13.0) 09/22/21 Unknown Coronavirus (PCR) Negative (Negative) 09/22/21 10:40 Sanchez/IV: Voiding Method Urinal Active Medications - Current Medications Current Medications: Generic Name Dose Route Start Last Admin Trade Name Freq PRN Reason Stop Dose Admin Acetaminophen 650 mg 09/22/21 09:00 09/25/21 21:49 Acetaminophen 325 Mg Tab PO 650 mg Q4H PRN Administration Pain MILD(1-3)/Fever >100.5/LOWRY Atorvastatin Calcium 20 mg 09/22/21 22:00 09/25/21 21:49 Atorvastatin 20 Mg Tab PO 20 mg QHS RODNYE Administration Dextrose 50 ml 09/22/21 10:30 Dextrose 50% In Water (25gm) 50 Ml Syringe IV Q30MIN PRN Hypoglycemia Protocol Digoxin 0.25 mg 09/23/21 17:00 09/25/21 17:40 Digoxin 0.25 Mg Tab PO 0.25 mg DAILY@1700 RODNEY Administration Diltiazem HCl 90 mg 09/25/21 20:00 09/26/21 03:42 Diltiazem 90 Mg Tab PO 90 mg Q6H RODNEY Administration Furosemide 40 mg 09/22/21 10:00 09/25/21 21:49 Furosemide 40 Mg Tab PO 40 mg BID RODNEY Administration Insulin Human Regular 0 units 09/22/21 11:30 09/26/21 08:23 Insulin Regular, Human 100 Units/1 Ml SUB-Q Not Given ACHS [facility] Protocol Metoprolol Tartrate 50 mg 09/25/21 18:00 09/26/21 05:41 Metoprolol Tartrate 50 Mg Tab PO 50 mg Q6H RODNEY Administration Morphine Sulfate 4 mg 09/22/21 09:00 Morphine 4 Mg/1 Ml Inj IV Q4H PRN Pain , Severe (7-10) Ondansetron HCl 4 mg 09/22/21 09:00 09/22/21 21:07 Ondansetron 4 Mg/2 Ml Inj IV 4 mg Q8H PRN Administration Nausea And Vomiting Oxycodone/Acetaminophen 1 tab 09/22/21 09:00 Oxycodone /Acetaminophen 5-325mg Tab PO Q6H PRN Pain, Moderate (4-6) Polyethylene Glycol 17 gm 09/24/21 10:00 09/25/21 09:41 Polyethylene Glycol 3350 17 Gm Powder PO Not Given QDAY RODNEY Sodium Chloride 10 ml 09/22/21 10:00 09/25/21 21:52 Sodium Chloride 0.9% 10 Ml Flush Syringe IV 10 ml BID RODNEY Administration Sodium Chloride 10 ml 09/22/21 09:00 Sodium Chloride 0.9% 10 Ml Flush Syringe IV PRN PRN LINE FLUSH Nutrition/Malnutrition Assess - Dietary Evaluation Nutrition/Malnutrition Findings: Nutrition Notes Start: 09/23/21 19:25 Freq: Status: Active Protocol: Document 09/23/21 19:25 DOROTEO (Rec: 09/23/21 19:49 DOROTEO [id number]) Nutrition Notes Initial or Follow up Assessment Current Diagnosis COPD,Diabetes,Hypertension, Respiratory Failure, Hyperlipidemia Other Pertinent Diagnosis Atrial Fibrilation w/RVR, HFpEF, ANGELITA, OHS. Current Diet Cardiac/Consistent Carbohydrates Diet (since B ). Labs/Tests 09/23: Na 136, K 3.5, Cl 97.6, Glu 150. Pertinent Medications 09/23: Warfarin 10 mg, others nutritionally unremarkable. Height 5 ft 4 in Weight 181 kg [place] Body Weight (kg) 59.09 BMI 68.5 Intake Prior to Admission Good Weight change and time frame Pt denies having loss body weight CONTROL PANEL TESTER. Weight Status Morbidly Obese Subjective/Other Information RD consult for warfarine use assessment. No reports available on Pt's PO intake of meals at the time . Pt is on Nasal Cannula, O2 saturation @ 98%, according to Physical Assessment History notes. Pt has been warfarine user since 08/10/2016, not a candidate for nutrition education. Percent of energy/protein needs met: Prescribed Cardiac/Consistent Carbohydrates Diet provides for energy/protein needs (1, 977 Kcal/86 g) during LOS. Burn Absent Trauma Absent GI Symptoms None Food Allergy No Skin Integrity/Comment Assessment WNL. Minimum of two criteria No Fluid Accumulation N/A Reduced Director Work Strength N/A (non-severe) Protein-Calorie Malnutrition N\A #1 Nutrition Diagnosis No nutrition diagnosis at this time Is patient on ventilator? No Is Patient Ambulatory and/or Out of Bed Yes [facility] [ 3348.800 [id number]] Kcal/Kg value to use for calculation 8 Approximate Energy Requirements Using 1448 kcal/Kg Calculation Used for Recommendations Kcal/kg Additional Notes Protein: 0.8-1 g/Kg AdjBW; 96- 120 g/day. Fluids: 1 ml/Kcal, or as per MD. Nutrition Intervention Change Diet Order: Continue Cardiac/Consistent Carbohydrates Diet. Revisit per MD consult or patient Sign Off request: Additional Comments Continue monitoring food tolerance, %PO intake of meals , and BM.
[2021-09-26] MEDS: oxyCODONE /ACETAMINOPHEN 5-325MG TAB PO PRN ×3 (09:15→23:15)
[2021-09-26] MEDS: POLYETHYLENE GLYCOL 3350 17 GM POWDER PO SCH (09:17)
[2021-09-26] MEDS ORDERED: DIGOXIN 0.25 MG TAB PO SCH (17:00)
[2021-09-26] MEDS ORDERED: WARFARIN 5 MG TAB PO ONE (17:00)
[2021-09-26] MEDS: DIGOXIN 0.125 MG TAB PO SCH (17:20)
--- NOTE | 2021-09-26 17:48 | Event Note ---
Date: 09/26/21 Patient is currently on Cardizem 90 mg every 6 hours Digoxin 0.125 mg daily Metoprolol 50 mg every 6 hours Coumadin 5 mg given this evening INR therapeutic at 2.32. Will monitor overnight with the current regimen Check PT, for patient's discharge needs Check with case management for discharge planning Discharge tomorrow if patient is stable.
[2021-09-27] MEDS: METOPROLOL TARTRATE 50 MG TAB PO SCH ×3 (00:04→17:12)
[2021-09-27 05:20] LABS: INR 2.02 (0.87-1.13)
[2021-09-27 05:40] LABS: Calcium 9.1 mg/dL (8.4-10.2)
[2021-09-27] MEDS: INSULIN REGULAR, HUMAN 100 UNITS/1 ML SUB-Q SCH ×3 (09:46→17:16)
[2021-09-27] MEDS: POLYETHYLENE GLYCOL 3350 17 GM POWDER PO SCH (10:19)
--- NOTE | 2021-09-27 10:27 | Progress Note ---
Assessment and Plan Patient is a 51-year-old male with a PMHx of morbid obesity, sleep apnea, paroxsimal atrial fibrillation, Chronic diastolic dysfunction, chronic renal insufficiency, HTN, DM, who presents today with complaint of nausea and vomiting since yesterday morning A. fib with RVR Nausea/vomiting ABD pain Chronic diastolic dysfunction Chronic renal insufficiency Hypertension Diabetes Sleep apnea Morbid obesity Echo 05/18/2021- Contrast was utilized. There is normal LV systolic function. The estimated LV ejection fraction is normal at 55-60%. There is moderate concentric LV hypertrophy. Normal left atrial pressure and diastolic function. There is normal right ventricular size, wall dimension, and systolic function. The LA volume is mildly increased. There is no aortic valve stenosis or regurgitation. There is mild aortic valve sclerosis without significant stenosis. There is no mitral regurgitation. There is mild tricuspid regurgitation. The estimated RV systolic pressure is 39.29 mmHg. There is trivial pulmonic regurgitation. The ascending aorta is mildly dilated. Ascending Aortic Diameter: 3.94 cm. No left ventricular thrombus noted with LV contrast images. Cardiac cath 08/10/2016-normal coronaries, mild luminal irregularities in the LAD and diagonal, moderate tortuosity of vessels. RCA is large and patent and dominant. Normal LV function. Normal left main. Outpatient medications: Furosemide 40 mg p.o. twice daily, atorvastatin 20 mg p.o. nightly, hydralazine 100 mg p.o. twice daily, lisinopril 40 mg p.o. daily, sotalol 80 mg p.o. twice daily, warfarin, metolazone 2.5 mg p.o. every 72 hours Plan: Telemetry reviewed patient converted to sinus rhythm this a.m. Continue anticoagulation with Warfarin Continue digoxin to 125mcg daily. Convert to Cardizem CD 360 mg p.o. daily, sotalol 120 mg p.o. twice daily, and metoprolol XL 25 mg p.o. daily. Hold Lisinopril and hydralazine to allow for admin of rate control medications. We will hold MICH/ARB due to renal function at this time Continue atorvastatin Discussed plan of care with patient who verbalized understanding and agreement Cardiac otherwise stable for discharge Patient has a follow-up appointment with Dr. Mike, [facility] water resource specialist, on September 30, 2021 at 10:45 AM in our [place] location. Phone #[phone] Patient seen in conjunction with Dr. Odonnell who agrees with this plan of care - Patient Problems (1) Chronic diastolic (congestive) heart failure Current Visit: Yes Status: Acute (2) Atrial fibrillation with RVR Current Visit: Yes Status: Acute (3) Epigastric pain Current Visit: Yes Status: Acute (4) Hypoxia Current Visit: Yes Status: Acute (5) Nausea and vomiting Current Visit: Yes Status: Acute Qualifiers: Vomiting type: unspecified Qualified Code(s): R11.2 - Nausea with vomiting, unspecified (6) Obesity hypoventilation syndrome Current Visit: Yes Status: Acute (7) Diabetes Current Visit: No Status: Chronic (8) HTN (hypertension) Current Visit: No Status: Chronic (9) Hyperlipidemia Current Visit: No Status: Chronic (10) Morbid obesity Current Visit: No Status: Chronic (11) Sleep apnea Current Visit: No Status: Chronic Subjective Date of service: 09/27/21 Principal diagnosis: AF w RVR Interval history: Patient sitting in chair in no acute distress. Patient converted to sinus rhythm rate in the 90s at 7:26 is am Objective Vital Signs Temp Pulse Resp BP BP Pulse Ox 09/27/21 10:17 77 09/27/21 08:27 98.4 F 95 H 18 121/65 93 09/27/21 08:05 136 H 113/81 09/27/21 06:13 136 H 113/81 09/27/21 05:08 97.4 F L 136 H 20 113/81 90 09/27/21 01:00 99.9 F H 66 20 123/72 92 09/27/21 00:15 20 09/27/21 00:04 66 123/72 09/26/21 23:15 20 09/26/21 22:00 134 H 09/26/21 20:44 72 97 09/26/21 20:00 96 09/26/21 19:54 98.9 F 95 H 18 99/79 92 09/26/21 19:44 98.0 F 76 16 100/53 100 09/26/21 17:21 92 H 09/26/21 17:20 91 H 09/26/21 17:18 91 H 09/26/21 15:33 98.0 F 18 131/88 09/26/21 12:05 90 09/26/21 11:52 98.0 F 18 L 18 120/76 99 - Physical Examination General: No Apparent Distress HEENT: Positive: EOMI, Normocephaly Neck: Positive: trachea midline. Negative: JVD/HJR Cardiac: Positive: Reg Rate and Rhythm Lungs: Positive: Normal Breath Sounds Neuro: Positive: Grossly Intact Abdomen: Positive: Soft Skin: Negative: Rash Musculoskeletal: No Pain Extremities: Present: edema (chronic), warm - Labs and Meds Coagulation 09/27/21 Range/Units 04:22 PT 26.0 H (12.2-14.9) Sec. INR 2.02 H (0.87-1.13) Comprehensive Metabolic Panel 09/27/21 Range/Units 04:22 Sodium 136 L (137-145) mmol/L Potassium 3.6 (3.6-5.0) mmol/L Chloride 96.5 L (98-107) mmol/L Carbon Dioxide 26 (22-30) mmol/L BUN 39 H (9-20) mg/dL Creatinine 1.7 H (0.8-1.3) mg/dL Glucose 102 H (75-100) mg/dL Calcium 9.1 (8.4-10.2) mg/dL - Imaging and Cardiology EKG: report reviewed, image reviewed Echo: report reviewed Cardiac cath: report reviewed - Telemetry EKG Rhythm: Sinus Rhythm - EKG Sinus rhythms and dysrhythmias: sinus rhythm AV and intraventricular conduction: right bundle branch block
--- NOTE | 2021-09-27 12:51 | Discharge Summary ---
Providers - Providers Date of Admission: 09/22/21 08:31 Date of discharge: 09/27/21 Attending physician: JULISSA GEORGE 09/22/21 07:43 Consult to Physician [CONS] Routine Comment: Consulting Provider: ASAEL MIKE Physician Instructions: Reason For Exam: Afib with RVR 09/26/21 17:45 Physical Therapy Evaluation and Treat [CONS] Routine Comment: Reason For Exam: Evaluate and treat/DC needs[morbid obesity] [facility] Reason for admission: Intractable nausea vomiting/A. fib with rapid ventricular rate Condition: Fair Pertinent studies: Abdomen and pelvis CT scan Hospital course: #Atrial fibrillation with rapid ventricular response/rate control today Cardiology adjusted medications yesterday' Today patient is on digoxin 0.125 daily Cardizem 90 p.o. every 6 hours metoprolol 50 mg every 6 hours, rate controlled On Coumadin 5 mg nightly, therapeutic INR at 2.3 to We will monitor overnight And discharge home tomorrow morning if patient's heart rate and blood pressures are well controlled DC planning per case management We will also request PT evaluation for DC needs #Acute on chronic hypoxic respiratory failure -patient uses supplemental O2 (2LPM) PRN, mostly at night -currently on NC @ 2LPM, will wean as tolerated -COVID PCR negative Home O2 evaluation prior to discharge #Nausea/vomiting-resolved #Chronic diastolic heart failure with preserved ejection fraction/diastolic CHF not in acute exacerbation -EF 55-60% per TTE from May 2021 -continue lasix at home dose #Hypertension -will continue lisinopril and hydralazine at home doses -goal SBP <160 #Type 2 diabetes, [id number] -patient takes metformin and glipizide at home -will start SSI and accuchecks at home -will continue to monitor #Obstructive sleep apnea -patient uses BiPAP at home -CPAP qhs ordered, patient will use home machine #Morbid obesity #Obesity hypoventilation syndrome - Counseled patient on the importance of weight loss, incorporating exercise, and dietary changes (lean meats, fresh fruits and vegetables, and water intake). Patient expresses understanding. - Time: +15 min atrial fibrillation with rapid ventricular rate Acute on chronic hypoxic respiratory failure Chronic diastolic congestive heart failure Obstructive sleep apnea Obesity hypoventilation syndrome Morbid obesity BMI 68.5 Hypertension Dyslipidemia Disposition: HOME / SELF CARE / HOMELESS Final Discharge Diagnosis (Prints w/discharge instructions): Chronic diastolic congestive heart failure. A. fib with rapid ventricular rate. obstructive sleep apnea. Obesity hypoventilation syndrome. Acute hypoxic respiratory failure. Type 2 diabetes mellitus. Hypertension. Dyslipidemia. Morbid obesity Time spent for discharge: 40 min Core Measure Documentation - Palliative Care Palliative Care/ Comfort Measures: Not Applicable - Core Measures Any of the following diagnoses?: none Exam - Constitutional Vitals: Temp Pulse Resp BP Pulse Ox 98.6 F 90 20 128/82 95 09/27/21 11:30 09/27/21 11:30 09/27/21 11:30 09/27/21 11:30 09/27/21 11:30 General appearance: Present: no acute distress, well-nourished, obese (Morbid obesity) - EENT Eyes: Present: PERRL, EOM intact - Neck Neck: Present: supple, normal ROM - Respiratory Respiratory effort: normal Respiratory: bilateral: diminished, negative: rales, rhonchi, wheezing - Cardiovascular Rhythm: regular Heart Sounds: Present: S1 & S2 - Extremities Extremities: no ischemia, No edema - Abdominal General gastrointestinal: Present: soft, non-tender, non-distended, normal bowel sounds - Integumentary Integumentary: Present: clear, warm, erythema - Musculoskeletal Musculoskeletal: strength equal bilaterally, generalized weakness - Psychiatric Psychiatric: appropriate mood/affect, cooperative - Neurologic Neurologic: moves all extremities Plan Activity: advance as tolerated, fall precautions Diet: diabetic, other (Cardiac + diabetic diet as tolerated) Additional Instructions: f/u Dr. Mike, [facility] medical support specialist, on September 30, 2021 at 10:45 AM in our [place] location. Phone #[phone]. If you have worsening symptoms contact MD or go to the nearest emergency room as needed. Strongly advised to comply with medications, diet, follow-up visits with physicians per schedule. Advised to see primary care physician/sql server architect per schedule. Advised to use CPAP BiPAP/oxygen as before Follow up with: VINCENT DELACRUZ MD [Primary Care Provider] - 3-5 Days ASAEL MIKE MD [Staff Physician] - 09/30/21 10:45 am Forms: Warfarin Discharge Instruction Prescriptions: Diltiazem HCl [Cardizem Cd] 360 mg PO DAILY #30 Warfarin [Coumadin] 7.5 mg PO DAILY@1700 #30 tablet Digoxin [Lanoxin] 0.125 mg PO DAILY@1700 #30 tablet AtorvaSTATin [Lipitor] 20 mg PO QHS #30 tablet Metoprolol Xl [Metoprolol SUCCINATE ER TAB] 25 mg PO QDAY #30 tablet polyethylene glycoL 3350 [Miralax 3350] 17 gm PO QDAY #30 powd.pack Omeprazole Magnesium [PriLOSEC Otc] 20 mg PO BID 30 Days #60 tab NS Sotalol HCl [Sotalol] 120 mg PO BID #60 Ondansetron [Zofran ODT TAB] 8 mg PO Q8HR 5 Days #15 tab.rapdis NS
[2021-09-27] MEDS ORDERED: WARFARIN 7.5 MG TAB PO NR (17:00)
[2021-09-27] MEDS: DIGOXIN 0.125 MG TAB PO SCH (17:13)
[2021-09-27] MEDS: oxyCODONE /ACETAMINOPHEN 5-325MG TAB PO PRN (17:21)
[2021-09-27 17:33] VITALS: BP 135/75
== END 2021-09-27 18:15 | disposition home or self-care (01) | DRG 308 ==
LOC: ED 14:28 → 4A 09-22 08:31
PROVIDERS: ADMIT Student in an Organized Health Care Education/Training Program; ATTEND Internal Medicine
PROC: 5A09457 Assistance with Respiratory Ventilation, 24-96 Consecutive Hours, Continuous Positive Airway Pressure (ICD-10-PCS; principal; 2021-09-22)
DX: I48.0 Paroxysmal atrial fibrillation (principal); J96.21 Acute and chronic respiratory failure with hypoxia; E66.2 Morbid (severe) obesity with alveolar hypoventilation; I50.32 Chronic diastolic (congestive) heart failure; I13.0 Hypertensive heart and chronic kidney disease with heart failure and stage 1 through stage 4 chronic kidney disease, or unspecified chronic kidney disease; Z68.44 Body mass index [BMI] 60.0-69.9, adult; I48.20 Chronic atrial fibrillation, unspecified; I48.92 Unspecified atrial flutter; Z71.3 Dietary counseling and surveillance; Z20.822 Contact with and (suspected) exposure to COVID-19; Z79.899 Other long term (current) drug therapy; Z79.01 Long term (current) use of anticoagulants; I25.2 Old myocardial infarction; I25.10 Atherosclerotic heart disease of native coronary artery without angina pectoris; Z79.84 Long term (current) use of oral hypoglycemic drugs; E11.22 Type 2 diabetes mellitus with diabetic chronic kidney disease; N18.9 Chronic kidney disease, unspecified; Z82.49 Family history of ischemic heart disease and other diseases of the circulatory system; Z83.3 Family history of diabetes mellitus
CPT/HCPCS: 36415; 74177; 80048; 80053; 81001; 82962; 83690; 83735; 84443; 84484; 85007; 85014; 85018; 85025; 85610; 93005; 94660; 94760; G0378; J3490; J7060; Q9967; J0282; J1160; J1815; J2405; J2765; J7030; Q0162; U0003